=== PATIENT | male | born 1950 | race Caucasian/White ===

== ENCOUNTER → 2017-07-30 20:00 | Outpatient (CLI) | payer MEDICARE, SELFPAY | PROVIDERS: Family Provider Family Medicine; PCP Family Medicine; Visit Provider Family Medicine | DX: G47.33 Obstructive sleep apnea (adult) (pediatric) (principal) | CPT/HCPCS: 95810 ==

== ENCOUNTER → 2017-09-08 20:00 | Outpatient (CLI) | payer MEDICARE, SELFPAY | PROVIDERS: Family Provider Family Medicine; PCP Family Medicine; Visit Provider Family Medicine | DX: G47.33 Obstructive sleep apnea (adult) (pediatric) (principal) | CPT/HCPCS: 95811 ==

== ENCOUNTER → 2018-03-02 13:47 | Outpatient (CLI) | payer MEDICARE, SELFPAY ==
[2018-03-02 17:46] LABS: ALB/GLOB Ratio 0.9 RATIO (0.9-2.4); AST(SGOT) 48 U/L (15-37); Alanine Aminotransfer ALT/SGPT 90 U/L (16-61); Albumin, Serum 3.6 g/dL (3.2-5.0); Alkaline Phosphatase 74 U/L (45-117); Anion Gap 7 (5-15); BUN 17 mg/dL (7-18); BUN/Creat Ratio 14.8 RATIO (10-20); Calcium,Total 8.4 mg/dL (8.5-10.1); Chloride 104 mmol/L (98-107); Cholesterol 171 mg/dL (200); Creatinine, Serum 1.15 mg/dL (0.70-1.30); EST Glomerular Filtration Rate 68 mL/min (>60); Est Glom Filt Rate - Afr Amer 82 mL/min (>60); Globulin 3.8 g/dL (2.2-4.2); Glucose 88 mg/dL (74-106); High Density Lipoprotein 43 mg/dL; Potassium 3.7 mmol/L (3.5-5.1); Protein, Total 7.4 g/dL (6.4-8.2); Sodium Level 139 mmol/L (136-145); Triglycerides 191 mg/dL; Very Low Density Lipoprotein 38 mg/dL (5-40)
== END ==
PROVIDERS: Family Provider Family Medicine; PCP Family Medicine; Visit Provider Family Medicine
DX: I10 Essential (primary) hypertension (principal); E78.5 Hyperlipidemia, unspecified
CPT/HCPCS: 36415; 80053; 80061

== ENCOUNTER → 2019-06-16 14:43 | Outpatient (CLI) | payer MEDICARE, SELFPAY ==
[2019-06-16 17:24] LABS: Absolute Lymphocyte Count 1.77 X10^3/uL (0.83-4.51); Absolute Neutrophil Count 2.7 X10^3/uL (2.0-7.7); Basophil# 0.09 X10^3/uL; Basophil% 1.7 % (0-1); Eosinophil# 0.15 X10^3/uL; Eosinophils% 2.8 % (0-5); Hematocrit 39.9 % (40-54); Hemoglobin 13.3 g/dL (13.0-16.5); Lymphocyte # 1.77 X10^3/ul (4.0); Lymphocyte % 33.3 % (19-41); Mean Corp Hgb Conc 33.3 g/dL (32-36); Mean Corpuscular Hgb 30.3 pg (27.0-32.0); Mean Corpuscular Volume 90.9 fL (80-94); Monocyte% 11.3 % (0-10); NRBC Flagged by Analyzer 0 % (0-5); Neutrophil # 2.69 X10^3/uL (2.7-7.7); Neutrophil % 50.7 % (47-70); Platelet Count 175 K/mm3 (150-450); RBC Distribution Width CV 12.5 % (11.6-14.6); RBC Distribution Width SD 41.5 fl (35.1-43.9); Red Blood Count 4.39 M/mm3 (4.6-6.2); White Blood Count 5.3 K/mm3 (4.4-11.0)
[2019-06-16 17:39] LABS: Cholesterol 184 mg/dL (200); GGTP 26 U/L (15-85); High Density Lipoprotein 40 mg/dL; PSA,Total - Annual Screen 0.79 ng/mL (0.00-4.00); Triglycerides 113 mg/dL; Very Low Density Lipoprotein 23 mg/dL (5-40)
[2019-06-17 10:31] LABS: Hepatitis C Antibody Non-Reactive (Nonreactive)
== END ==
PROVIDERS: PCP Family Medicine; Visit Provider Family Medicine
DX: I10 Essential (primary) hypertension (principal); E78.5 Hyperlipidemia, unspecified; R74.8 Abnormal levels of other serum enzymes; Z12.5 Encounter for screening for malignant neoplasm of prostate; Z51.81 Encounter for therapeutic drug level monitoring
CPT/HCPCS: 36415; 80061; 82977; 84153; 85025; 86803; G0103

== ENCOUNTER → 2020-06-18 10:22 | Outpatient (CLI) | payer MEDICARE, SELFPAY ==
[2020-06-18 12:02] LABS: Absolute Lymphocyte Count 1.55 X10^3/uL (0.83-4.51); Absolute Neutrophil Count 3.9 X10^3/uL (2.0-7.7); Basophil# 0.08 X10^3/uL; Basophil% 1.3 % (0-1); Eosinophil# 0.21 X10^3/uL; Eosinophils% 3.3 % (0-5); Hematocrit 41.6 % (40-54); Hemoglobin 13.6 g/dL (13.0-16.5); Lymphocyte # 1.55 X10^3/ul (4.0); Lymphocyte % 24.3 % (19-41); Mean Corp Hgb Conc 32.7 g/dL (32-36); Mean Corpuscular Hgb 29.6 pg (27.0-32.0); Mean Corpuscular Volume 90.6 fL (80-94); Mean Platelet Vol. 13.1 fl (6.2-12.0); Monocyte# 0.63 X10^3/uL; Monocyte% 9.9 % (0-10); NRBC Flagged by Analyzer 0 % (0-5); Platelet Count 170 K/mm3 (150-450); RBC Distribution Width CV 12.2 % (11.6-14.6); RBC Distribution Width SD 40.1 fl (35.1-43.9); Red Blood Count 4.59 M/mm3 (4.6-6.2); White Blood Count 6.4 K/mm3 (4.4-11.0)
[2020-06-18 12:43] LABS: AST(SGOT) 22 U/L (15-37); Alanine Aminotransfer ALT/SGPT 32 U/L (16-61); Albumin, Serum 3.8 g/dL (3.2-5.0); Alkaline Phosphatase 69 U/L (45-117); Anion Gap 4 (5-15); BUN 21 mg/dL (7-18); BUN/Creat Ratio 18.4 RATIO (10-20); Calcium,Total 8.9 mg/dL (8.5-10.1); Chloride 105 mmol/L (98-107); Cholesterol 220 mg/dL (200); Creatinine, Serum 1.14 mg/dL (0.70-1.30); EST Glomerular Filtration Rate 68 mL/min (>60); Est Glom Filt Rate - Afr Amer 82 mL/min (>60); Globulin 3.8 g/dL (2.2-4.2); Glucose 92 mg/dL (74-106); High Density Lipoprotein 56 mg/dL; PSA,Total - Annual Screen 0.76 ng/mL (0.00-4.00); Potassium 4.1 mmol/L (3.5-5.1); Protein, Total 7.6 g/dL (6.4-8.2); Sodium Level 141 mmol/L (136-145); Triglycerides 88 mg/dL; Very Low Density Lipoprotein 18 mg/dL (5-40)
== END ==
PROVIDERS: PCP Family Medicine; Visit Provider Family Medicine
DX: I10 Essential (primary) hypertension (principal); E78.5 Hyperlipidemia, unspecified; R42 Dizziness and giddiness; R74.8 Abnormal levels of other serum enzymes; Z12.5 Encounter for screening for malignant neoplasm of prostate
CPT/HCPCS: 36415; 80053; 80061; 84153; 85025; G0103

== ENCOUNTER → 2020-10-02 | Outpatient (CLI) | payer MEDICARE, SELFPAY ==
[2020-10-02 08:47] VITALS: BMI 28.8
[2020-10-02 17:29] LABS: Probe Check PASS; Specimen Processing Control PASS
== END | disposition home or self-care (01) ==
LOC: LABSPEC 16:10
PROVIDERS: PCP Family Medicine; Visit Provider Physician Assistant
DX: Z20.822 Contact with and (suspected) exposure to COVID-19 (principal)
CPT/HCPCS: 87635; U0002

== ENCOUNTER → 2022-07-22 | Outpatient (CLI) | payer MEDICARE, SELFPAY ==
[2022-07-22 12:51] LABS: Absolute Lymphocyte Count 1.73 X10^3/uL (0.83-4.51); Absolute Neutrophil Count 3.9 X10^3/uL (2.0-7.7); Basophil# 0.09 X10^3/uL; Basophil% 1.4 % (0-1); Eosinophil# 0.17 X10^3/uL; Eosinophils% 2.6 % (0-5); Hematocrit 44.4 % (40-54); Hemoglobin 14.9 g/dL (13.0-16.5); Lymphocyte # 1.73 X10^3/ul (0.83-4.51); Mean Corp Hgb Conc 33.6 g/dL (32-36); Mean Corpuscular Hgb 30.6 pg (27.0-32.0); Mean Corpuscular Volume 91.2 fL (80-94); Mean Platelet Vol. 12.9 fl (6.2-12.0); Monocyte# 0.75 X10^3/uL; Monocyte% 11.3 % (0-10); NRBC Flagged by Analyzer 0 % (0-5); Neutrophil # 3.91 X10^3/uL (2.7-7.7); Neutrophil % 58.5 % (47-70); Platelet Count 203 K/mm3 (150-450); RBC Distribution Width CV 12.2 % (11.6-14.6); Red Blood Count 4.87 M/mm3 (4.6-6.2); White Blood Count 6.7 K/mm3 (4.4-11.0)
[2022-07-22 13:06] LABS: ALB/GLOB Ratio 0.9 RATIO (0.9-2.4); AST(SGOT) 35 U/L (15-37); Alanine Aminotransfer ALT/SGPT 49 U/L (16-61); Albumin, Serum 3.8 g/dL (3.2-5.0); Alkaline Phosphatase 74 U/L (45-117); Anion Gap 6 (5-15); BUN 17 mg/dL (7-18); BUN/Creat Ratio 13.3 RATIO (10-20); Calcium,Total 9.1 mg/dL (8.5-10.1); Chloride 105 mmol/L (98-107); Cholesterol 212 mg/dL (200); Creatinine, Serum 1.28 mg/dL (0.70-1.30); EST Glomerular Filtration Rate 59 mL/min (>60); Est Glom Filt Rate - Afr Amer 71 mL/min (>60); Globulin 4.3 g/dL (2.2-4.2); Glucose 106 mg/dL (74-106); High Density Lipoprotein 47 mg/dL; Magnesium 1.9 mg/dL (1.6-2.6); PSA,Total - Annual Screen 0.94 ng/mL (0.00-4.00); Protein, Total 8.1 g/dL (6.4-8.2); Sodium Level 140 mmol/L (136-145); Thyroid Stim Hormone (TSH) 3.69 uIU/mL (0.358-3.74); Triglycerides 132 mg/dL; Very Low Density Lipoprotein 26 mg/dL (5-40)
== END | disposition home or self-care (01) ==
LOC: BFHLAB 09:36
PROVIDERS: PCP Family Medicine; Visit Provider Family Medicine
DX: Z00.00 Encounter for general adult medical examination without abnormal findings (principal); I48.91 Unspecified atrial fibrillation; I10 Essential (primary) hypertension; Z12.5 Encounter for screening for malignant neoplasm of prostate
CPT/HCPCS: 36415; 80053; 80061; 83735; 84153; 84443; 85025; G0103

== ENCOUNTER → 2022-08-19 | Outpatient (CLI) | payer MEDICARE, SELFPAY ==
[2022-08-19 17:53] LABS: Absolute Lymphocyte Count 2.22 X10^3/uL (0.83-4.51); Absolute Neutrophil Count 3.4 X10^3/uL (2.0-7.7); Basophil# 0.08 X10^3/uL; Basophil% 1.2 % (0-1); Eosinophil# 0.23 X10^3/uL; Eosinophils% 3.4 % (0-5); Hematocrit 42.7 % (40-54); Hemoglobin 14.5 g/dL (13.0-16.5); Lymphocyte # 2.22 X10^3/ul (0.83-4.51); Lymphocyte % 32.8 % (19-41); Mean Corpuscular Hgb 30.6 pg (27.0-32.0); Mean Corpuscular Volume 90.1 fL (80-94); Mean Platelet Vol. 12.6 fl (6.2-12.0); Monocyte# 0.81 X10^3/uL; NRBC Flagged by Analyzer 0 % (0-5); Neutrophil # 3.41 X10^3/uL (2.7-7.7); Neutrophil % 50.3 % (47-70); Platelet Count 213 K/mm3 (150-450); RBC Distribution Width CV 12.7 % (11.6-14.6); RBC Distribution Width SD 41.4 fl (35.1-43.9); Red Blood Count 4.74 M/mm3 (4.6-6.2); White Blood Count 6.8 K/mm3 (4.4-11.0)
[2022-08-19 18:20] LABS: BNP,B-Type NATRIURETIC PEPTIDE 400.1 pg/mL (0-100)
[2022-08-19 18:43] LABS: Anion Gap 7 (5-15); BUN 14 mg/dL (7-18); BUN/Creat Ratio 11.6 RATIO (10-20); Calcium,Total 9.2 mg/dL (8.5-10.1); Chloride 106 mmol/L (98-107); Creatinine, Serum 1.21 mg/dL (0.70-1.30); EST Glomerular Filtration Rate 63 mL/min (>60); Est Glom Filt Rate - Afr Amer 76 mL/min (>60); Glucose 103 mg/dL (74-106); Potassium 3.6 mmol/L (3.5-5.1); Sodium Level 139 mmol/L (136-145)
== END | disposition home or self-care (01) ==
LOC: BFHLAB 14:26
PROVIDERS: PCP Family Medicine; Referring Provider Family Medicine; Visit Provider Family Medicine
DX: I48.91 Unspecified atrial fibrillation (principal); I10 Essential (primary) hypertension; Z51.81 Encounter for therapeutic drug level monitoring
CPT/HCPCS: 36415; 80048; 83880; 85025

== ENCOUNTER → 2022-09-10 | Outpatient (CLI) | payer MEDICARE, SELFPAY ==
--- NOTE | 2022-09-10 06:43 | ECHOD_ITS ---
Reason For Study: New Onset Afib Procedure This was a 2D Doppler, Color Flow transthoracic echocardiogram. Exam performed in department. Left Ventricle Normal LV size. Left ventricular systolic function is normal. The estimated ejection fraction is 60 %. Normal diastology for age. No regional wall motion abnormalities noted. Right Ventricle Normal RV size. Normal systolic function. Tricuspid Valve Normal tricuspid valve. Mild tricuspid valve insufficiency. Pulmonary artery systolic pressure is 30 mmHg. Aortic Valve Trisinus/trileaflet aortic valve. Pulmonic Valve Normal pulmonic valve. Great Vessels Normal aortic root. The pulmonary artery is normal size. Normal inferior vena cava. Pericardium/Pleural No pericardial effusion. MMode/2D Measurements & Calculations LVIDd: 4.4 cm IVSd: 1.3 cm Ao root diam: 3.1 cm LVIDs: 3.2 cm LVPWd: 0.95 cm RVDd: 3.6 cm FS: 26.7 % LAV(MOD-bp): 48.0 ml SV(MOD-sp4): 54.2 ml LVAd ap4: 29.3 cm2 LAV(MOD-bp) Indexed: 22.8 ml/m2 LVLd ap4: 7.9 cm LAV(MOD-sp2): 36.4 ml EDV(MOD-sp4): 86.8 ml LAV(MOD-sp4): 56.4 ml EDV(sp4-el): 92.6 ml LVAs ap4: 16.4 cm2 LVLs ap4: 6.6 cm ESV(MOD-sp4): 32.6 ml ESV(sp4-el): 34.4 ml EF(MOD-sp4): 62.4 % EF(sp4-el): 62.9 % SV(sp4-el): 58.2 ml LA dimension(2D): 4.3 cm LA A4 area: 20.3 cm2 RA A4 area: 16.0 cm2 Time Measurements MV dec time: 0.23 sec Doppler Measurements & Calculations MV E max miguel: 90.1 cm/sec Lat Peak E' Miguel: 9.5 cm/sec Med Peak E' Miguel: 8.1 cm/sec MV A max miguel: 74.7 cm/sec E/E' lat: 9.4 E/E' med: 11.1 MV E/A: 1.2 Ao V2 max: 115.2 cm/sec LV V1 max: 95.4 cm/sec MV dec slope: 395.7 cm/sec2 Ao max P.3 mmHg LV V1 max P.6 mmHg Ao V2 mean: 81.5 cm/sec Ao mean P.0 mmHg Ao V2 VTI: 29.5 cm PA V2 max: 87.2 cm/sec TR max miguel: 258.1 cm/sec TR max P.6 mmHg ECHO/Echo Complete Interpretation Summary Normal LV size. Left ventricular systolic function is normal. The estimated ejection fraction is 60 %. Structurally normal valves. Ordering Physician: Maycol Lundy Referring Physician: Panda Eaton Performed By: Shira Winter, RDCS, RVT
--- NOTE | 2022-09-10 18:23 | STRESSREP ---
Stress Test Report Exercise myocardial perfusion stress test. 72-year-old man with a history of atrial fibrillation Stress protocol: Resting EKG demonstrates sinus bradycardia with a rate of 57 bpm resting blood pressure is 142/84 mmHg. The patient exercised according to the regular Dhaval protocol for a total duration of 8 minutes attaining a maximum heart rate of 129 bpm which was 86% of maximum predicted heart rate; the maximum workload was 10.1 metabolic equivalents. At rest there were no ST or T wave changes noted to suggest ischemia and at peak exercise upsloping ST changes only were noted which did not meet the criteria for ischemia. No clinical angina was noted the test was terminated due to the target heart rate being achieved/fatigue. The peak blood pressure was 192/80 mmHg. Rate-pressure product was 24,700. Myocardial perfusion protocol. 14.7 mCi of technetium 99m sestamibi was injected at rest. The patient exercised according to regular Dhaval protocol for total duration of 8 minutes and at peak exercise 44.8 mCi of technetium 99m sestamibi was injected stress images were obtained stress and rest images were reconstructed in comparing the short axis vertical long and horizontal long axis. Gated images were also obtained. Perfusion SPECT analysis: Review of the stress images demonstrate normal uptake of tracer noted in all areas of the myocardium. The resting images similarly demonstrate normal uptake of tracer noted in all areas of the myocardium. No areas of reversibility are noted to suggest ischemia no previous infarct was noted. Gated SPECT analysis: The gated ejection fraction is 60%. Conclusion: Normal exercise myocardial perfusion stress test at a high workload Preserved ejection fraction.
== END | disposition home or self-care (01) ==
LOC: CVS 06:42
PROVIDERS: PCP Family Medicine; Referring Provider Internal Medicine Cardiovascular Disease; Visit Provider Internal Medicine Cardiovascular Disease
DX: R94.31 Abnormal electrocardiogram [ECG] [EKG] (principal)
CPT/HCPCS: 78452; 93017; 93306; A9500; A4216

== ENCOUNTER → 2023-08-19 | Outpatient (CLI) | payer MEDICARE, SELFPAY ==
[2023-08-19 14:37] LABS: Absolute Lymphocyte Count 2.29 X10^3/uL (0.83-4.51); Absolute Neutrophil Count 4.2 X10^3/uL (2.0-7.7); Basophil# 0.12 X10^3/uL; Basophil% 1.6 % (0-1); Eosinophil# 0.17 X10^3/uL; Eosinophils% 2.2 % (0-5); Hematocrit 43.1 % (40-54); Hemoglobin 14.4 g/dL (13.0-16.5); Lymphocyte # 2.29 X10^3/ul (0.83-4.51); Lymphocyte % 30.1 % (19-41); Mean Corp Hgb Conc 33.4 g/dL (32-36); Mean Corpuscular Hgb 30.2 pg (27.0-32.0); Mean Corpuscular Volume 90.4 fL (80-94); Mean Platelet Vol. 12.2 fl (6.2-12.0); Monocyte# 0.79 X10^3/uL; Monocyte% 10.4 % (0-10); NRBC Flagged by Analyzer 0 % (0-5); Neutrophil # 4.21 X10^3/uL (2.7-7.7); Neutrophil % 55.4 % (47-70); Platelet Count 217 K/mm3 (150-450); RBC Distribution Width CV 12.7 % (11.6-14.6); RBC Distribution Width SD 41.7 fl (35.1-43.9); Red Blood Count 4.77 M/mm3 (4.6-6.2); White Blood Count 7.6 K/mm3 (4.4-11.0)
[2023-08-19 14:58] LABS: BNP,B-Type NATRIURETIC PEPTIDE 178.8 pg/mL (0-100)
[2023-08-19 15:07] LABS: AST(SGOT) 37 U/L (15-37); Alanine Aminotransfer ALT/SGPT 59 U/L (16-61); Albumin, Serum 3.9 g/dL (3.2-5.0); Alkaline Phosphatase 73 U/L (45-117); Anion Gap 6 (5-15); BUN 21 mg/dL (7-18); BUN/Creat Ratio 13.5 RATIO (10-20); Calcium,Total 8.5 mg/dL (8.5-10.1); Chloride 106 mmol/L (98-107); Creatinine, Serum 1.56 mg/dL (0.70-1.30); EST Glomerular Filtration Rate 47 mL/min (>60); Est Glom Filt Rate - Afr Amer 57 mL/min (>60); Globulin 3.9 g/dL (2.2-4.2); Glucose 101 mg/dL (74-106); Magnesium 2.2 mg/dL (1.6-2.6); PSA,Total - Annual Screen 1.39 ng/mL (0.00-4.00); Potassium 3.4 mmol/L (3.5-5.1); Protein, Total 7.8 g/dL (6.4-8.2); Sodium Level 140 mmol/L (136-145); Thyroid Stim Hormone (TSH) 8.43 uIU/mL (0.358-3.74)
== END | disposition home or self-care (01) ==
PROVIDERS: PCP Family Medicine; Referring Provider Nurse Practitioner Family; Visit Provider Nurse Practitioner Family
DX: I10 Essential (primary) hypertension (principal); I48.91 Unspecified atrial fibrillation; E78.2 Mixed hyperlipidemia; R06.09 Other forms of dyspnea; Z12.5 Encounter for screening for malignant neoplasm of prostate
CPT/HCPCS: 36415; 80053; 83735; 83880; 84153; 84443; 85025; G0103

== ENCOUNTER → 2023-09-17 | Outpatient (CLI) | payer MEDICARE, SELFPAY ==
[2023-09-17 12:36] LABS: Anion Gap 3 (5-15); BUN 18 mg/dL (7-18); BUN/Creat Ratio 12.2 RATIO (10-20); Calcium,Total 8.9 mg/dL (8.5-10.1); Chloride 107 mmol/L (98-107); Cholesterol 221 mg/dL (200); Creatinine, Serum 1.47 mg/dL (0.70-1.30); EST Glomerular Filtration Rate 50 mL/min (>60); Est Glom Filt Rate - Afr Amer 61 mL/min (>60); Glucose 102 mg/dL (74-106); High Density Lipoprotein 48 mg/dL; Potassium 4.3 mmol/L (3.5-5.1); Sodium Level 139 mmol/L (136-145); Triglycerides 96 mg/dL; Very Low Density Lipoprotein 19 mg/dL (5-40)
== END | disposition home or self-care (01) ==
LOC: LAB.FUTURE 10:01
PROVIDERS: PCP Family Medicine; Referring Provider Family Medicine; Visit Provider Family Medicine
DX: I48.91 Unspecified atrial fibrillation (principal); I10 Essential (primary) hypertension; E78.5 Hyperlipidemia, unspecified; Z12.5 Encounter for screening for malignant neoplasm of prostate
CPT/HCPCS: 36415; 80048; 80061

== ENCOUNTER → 2023-12-29 | Outpatient (CLI) | payer MEDICARE, SELFPAY ==
--- NOTE | 2023-12-29 12:03 | STRESSREP ---
Stress Test Report Exercise myocardial perfusion stress test. 73-year-old man with a history of atrial fibrillation Stress protocol: Resting EKG demonstrates atrial fibrillation with a rate of 89 bpm resting blood pressure is 150/90 mmHg. The patient exercised according to the regular Dhaval protocol for a total duration of 6-1/2 minutes attaining a maximum heart rate of 162 bpm which was 108% of maximum predicted heart rate; the maximum workload was 8.5 metabolic equivalents. At rest there were no ST or T wave changes noted to suggest ischemia and at peak exercise upsloping ST changes only were noted which did not meet the criteria for ischemia. No clinical angina was noted the test was terminated due to the target heart rate being achieved/fatigue. The peak blood pressure was 164/82 mmHg. Rate-pressure product was 26,500. Myocardial perfusion protocol. 14.1 mCi of technetium 99m sestamibi was injected at rest. The patient exercised according to regular Dhaval protocol for total duration of 6-1/2-minute and at peak exercise 42.3 mCi of technetium 99m sestamibi was injected stress images were obtained stress and rest images were reconstructed in comparing the short axis vertical long and horizontal long axis. Gated images were also obtained. Perfusion SPECT analysis: Review of the stress images demonstrate normal uptake of tracer noted in all areas of the myocardium. The resting images similarly demonstrate normal uptake of tracer noted in all areas of the myocardium. No areas of reversibility are noted to suggest ischemia no previous infarct was noted. Gated SPECT analysis: The gated ejection fraction is 54%. Conclusion: Normal exercise myocardial perfusion stress test at a moderate workload Preserved ejection fraction.
== END | disposition home or self-care (01) ==
PROVIDERS: PCP Family Medicine; Referring Provider Nurse Practitioner Family; Visit Provider Nurse Practitioner Family
DX: R06.09 Other forms of dyspnea (principal); I48.0 Paroxysmal atrial fibrillation; I10 Essential (primary) hypertension; E78.2 Mixed hyperlipidemia
CPT/HCPCS: 78452; 93017; A9500; A4216

== ENCOUNTER 2024-06-22 19:33 | Inpatient (IN) | payer MEDICARE, SELFPAY ==
[2024-06-22] VITALS (11 sets, daily range): BP systolic 120–137; BP diastolic 67–88; PULSE 87–116; RESP 16–35; TEMP 36.7–37.7; O2SAT 90–98; BMI 30.4; BMI 30.7
--- NOTE | 2024-06-22 19:43 | EKG12_ITS ---
Test Reason : STROKE ALERT Blood Pressure : */* mmHG Vent. Rate : 106 BPM Atrial Rate : * BPM P-R Int : * ms QRS Dur : 80 ms QT Int : 290 ms P-R-T Axes : * -13 32 degrees QTcB Int : 385 ms Atrial fibrillation with rapid ventricular response Nonspecific ST abnormality Abnormal ECG Confirmed by WILFREDO MALONEY, JOVANNA ([id number]), script editor ZENAIDA OSEGUERA ([id number]) on 06/25/2024 7:22:37 AM Referred By: Confirmed By: JOVANNA VILLALOBOS MD
--- NOTE | 2024-06-22 19:43 | CT_ITS ---
PROCEDURE: STROKE BRAIN/HEAD WITHOUT CONT REASON FOR EXAM: Suspected stroke. TECHNIQUE: CT of the head without contrast was performed. COMPARISON: None. FINDINGS: The ventricles are normal in size and midline in position. Left parietal hypodensity spanning the lee-white matter junction. No evidence of acute hemorrhage. No extra-axial blood or fluid collections. The paranasal sinuses are clear. The mastoid air cells are well aerated. CT/STROKE Brain/Head without Cont IMPRESSION: Left parietal hypodensity favoring infarction of undetermined age. MRI is jalen mmended to exclude an acute infarction. Critical results were communicated to Dr. Bryce Jaime at 7:56 p.m. One or more dose reduction techniques were used (e.g., Automated exposure contr ol, adjustment of the mA and/or kV according to patient size, use of iterative reconstruction technique). Reading Location: [id number]
--- NOTE | 2024-06-22 19:44 | CT_ITS ---
PROCEDURE: STROKE CTA HEAD AND NECK W/CON REASON FOR EXAM: Stroke. TECHNIQUE: CTA imaging of the head and neck from the aortic arch to the skull vertex with intravenous contrast. 3D reconstructions. COMPARISON: None. FINDINGS: Aortic Arch: Normal size and branching pattern. No significant atherosclerotic plaque. Brachiocephalic and Subclavians: Unremarkable RIGHT Carotid: Right CCA: Unremarkable. Right ICA: Occluded right internal carotid artery. Right ECA: Unremarkable. LEFT Carotid: Left CCA: Unremarkable. Left ICA: Atherosclerosis without significant stenosis. Left ECA: Unremarkable. Vertebrals: Codominant. Arise from the subclavians. Both vertebrals form the basilar. RIGHT Vertebral: Thready opacification. LEFT Vertebral: Unremarkable. No intracranial aneurysms or large vascular malformations are identified. Anterior cerebral arteries: Unremarkable. Middle cerebral arteries: Unremarkable. Basilar artery: Unremarkable. Posterior cerebral arteries: Unremarkable. Other major branches of the posterior circulation: Unremarkable. Major venous structures: Unremarkable. Other findings: No lymphadenopathy. Lung apices are clear. Bones are unremarkable. CT/STROKE CTA Head AND Neck W/Con IMPRESSION: Occluded right internal carotid artery. Thready opacification of a diminutive right cervical vertebral artery. Critical results communicated to Dr. Agrawal 8:15 p.m. One or more dose reduction techniques were used (e.g., Automated exposure contr ol, adjustment of the mA and/or kV according to patient size, use of iterative reconstruction technique). Reading Location: [id number]
--- NOTE | 2024-06-22 19:45 | EX.ED.DYSGE1 ---
HPI History of Present Illness Chief Complaint: Stroke Alert Narrative Narrative: Chief complaint and HPI: Expressive aphasia. 74-year-old male with past medical history of HTN, HLD, atrial fibrillation on Xarelto presents for evaluation of expressive aphasia. Per , patient has had flulike symptoms for the past 2 days consisting of cough, fever, decreased appetite, sore throat. She states that his last known normal was at approximately 10:30 AM when she left for work. She states she returned home from work at approximately 6 PM in which she found the patient with expressive aphasia. On presentation to the emergency department, patient was made a stroke alert as he is still within the LVO window but outside the CVA window given last known normal. Given patient's expressive aphasia history is limited by patient as he cannot tell me when his symptoms started. NIH 2 secondary to expressive aphasia. Patient taken immediately to the CT scanner. Review of systems: See HPI Medications: As listed on the chart Allergies: As listed on the chart PFSH: Per chart Vital signs: As listed on the chart. Reviewed. Physical exam: Gen: A&O x3, NAD Head: Normocephalic, atraumatic Eyes: No sclera icterus, conjunctiva clear, PERRL, EOMI ENT: Moist mucous membranes, No facial asymmetry Neck: Trachea midline, No JVD CV: RRR, no murmurs, no peripheral edema Resp: Lungs CTA BL, no w/r/c GI: Abd soft, non-distended, non-tender, no r/r/g Musc: Full ROM, no deformity, strength +5/5 in all extremities, no pronator drift, no ataxia, DTR +2/5 Skin: Warm, dry, intact Neuro: Alert, oriented, grossly intact, sensation intact, no dysarthria, expressive aphasia, NIH 2 Psych: Cooperative, appropriate mood and affect [facility] Medical History MERY on CPAP Essential hypertension Hyperlipidemia BPH (benign prostatic hyperplasia) PLMD (periodic limb movement disorder) Home Medications ?Medication ?Instructions ?Recorded ?Last Taken ?Type losartan 50 mg tablet 50 mg PO DAILY #90 tabs 08/19/23 06/21/24 Rx rivaroxaban 20 mg tablet (Xarelto) 20 mg PO QPM #30 tabs 09/22/23 06/22/24 10:00 Rx metoprolol succinate 50 mg 50 mg PO QDAY #90 tabs 05/03/24 06/22/24 10:00 Rx tablet,extended release 24 hr (Toprol XL) Allergy/AdvReac Type Severity Reaction Status Date / Time Penicillins Allergy Unknown Rash Verified 05/03/24 09:58 lisinopril AdvReac Unknown cough Verified 05/03/24 09:58 Family History Mother Diabetes CVA (cerebral vascular accident) Surgical History History of appendectomy (~1969) History of eye surgery (~1989) Social History Smoking Status: Never smoker alcohol intake: never substance use type: does not use caffeine: Yes Type: coffee Number of servings: 1 EXAM Physical Exam Const Vital Signs: 06/22/24 19:34 06/22/24 19:54 06/22/24 19:56 Temperature 98.0 F Temperature Source Oral Pulse Rate 87 87 115 H Respiratory Rate 18 18 16 Blood Pressure 132/80 H 132/80 H 125/76 H Blood Pressure Mean 97 97 92 Pulse Ox 98 98 98 Oxygen Delivery Method Room Air Room Air Room Air Oxygen Flow Rate (L/min) 98 06/22/24 20:15 06/22/24 20:19 06/22/24 20:30 Temperature Temperature Source Pulse Rate 108 H 101 H Respiratory Rate 23 H 22 H Blood Pressure 120/88 H 121/77 H Blood Pressure Mean 98 91 Pulse Ox 94 98 92 Oxygen Delivery Method Room Air Room Air Room Air Oxygen Flow Rate (L/min) 06/22/24 21:00 06/22/24 21:31 Temperature 99.6 F H Temperature Source Oral Pulse Rate 101 H 106 H Respiratory Rate 35 H 30 H Blood Pressure 134/73 H 137/72 H Blood Pressure Mean 89 93 Pulse Ox 94 94 Oxygen Delivery Method Room Air Oxygen Flow Rate (L/min) MDM MDM MDM Narrative Medical decision making narrative: 74-year-old male with past medical history of HTN, HLD, atrial fibrillation on Xarelto presents for evaluation of expressive aphasia. Patient last known normal was 10:30 AM. Patient was made a stroke alert and taken immediately to CT scanner as he is inside LVO window. Not a tPA candidate given due to being on Xarelto as well as outside stroke window. Stroke workup ordered. [facility] teleneurology was consulted. Differential diagnosis includes CVA, LVO, electrolyte abnormality, viral illness. EKG and chest x-ray reviewed see below. CT head shows a left parietal hypodensity favoring infarction of undetermined age. This was communicated to me by radiology over the telephone. Teleneurology agrees with findings. CTA head and neck shows occluded right internal carotid artery. Thready opacification of right cervical vertebral artery. I was updated results by radiology over the phone. CBC without leukocytosis. Patient has anemia with hemoglobin of 12.7. Thrombocytopenia of 118. INR 1.8. BMP with mild hyponatremia at 132. Baseline CKD. Troponin unremarkable. UA negative for UTI. Patient positive for influenza A. Given his symptoms have been ongoing for 2 days patient is within Tamiflu window and therefore Tamiflu ordered. Findings are concerning for CVA. Patient will need admission for MRI brain and further workup. Teleneurology agrees with aspirin. Hold off on Plavix. Agrees with MRI brain. Patient and family updated of all the results and the plan. They confirmed understanding. Hospice service Dr. Villafana accepted admission. EKG: Interpreted by me/EM physician: EKG shows atrial fibrillation with a heart rate of 106. Nonspecific ST changes Diagnostic: Interpreted by me/EM physician: Chest x-ray without pneumonia, pneumothorax. Cardiomegaly. 35 minutes of critical care time utilized in managing the patient. This is due to high probability of and deterioration of the patient based on the patient's condition and excludes any separately billable procedures. Impression: 1. Left parietal hypodensity favoring infarction of undetermined age 2. Expressive aphasia 3. Influenza A 4. Anemia 5. Thrombocytopenia. 6. CKD 7. Mild hyponatremia. Lab Data Labs: Laboratory Results - last 24 hr 06/22/24 06/22/24 06/22/24 19:38 19:44 19:44 WBC Cancelled Corrected WBC Cancelled RBC Cancelled Hgb Cancelled Hct Cancelled MCV Cancelled MCH Cancelled MCHC Cancelled RDW Std Deviation Cancelled RDW Coeff of Mike Cancelled Plt Count Cancelled MPV Cancelled Immature Gran % (Auto) Cancelled Neut % (Auto) Cancelled Lymph % (Auto) Cancelled [place] % (Auto) Cancelled Eos % (Auto) Cancelled Baso % (Auto) Cancelled Absolute Neuts (auto) Cancelled Absolute Lymphs (auto) Cancelled Total Counted Cancelled Neutrophils % (Manual) Cancelled Band Neutrophils % Cancelled Lymphocytes % (Manual) Cancelled Monocytes % (Manual) Cancelled Eosinophils % (Manual) Cancelled Basophils % (Manual) Cancelled Metamyelocytes % Cancelled Myelocytes % Cancelled Promyelocytes % Cancelled Blast Cells % Cancelled Plasma Cell % (Manual) Cancelled Other Cells % Cancelled Nucleated RBC % Cancelled Nucleated RBCs/100 WBC Cancelled Differential Comment Cancelled Diff Path Review Cancelled Hypersegmented Neuts Cancelled Atypical Lymphocytes Cancelled Reactive Lymphocytes Cancelled Smudge Cells Cancelled Toxic Granulation Cancelled Toxic Vacuolation Cancelled Dohle Bodies Cancelled Cindy Rods Cancelled Platelet Estimate Cancelled Plt Morphology Comment Cancelled RBC Morphology Cancelled Cancelled Polychromasia Cancelled Hypochromasia Cancelled Basophilic Stippling Cancelled Anisocytosis Cancelled Microcytosis Cancelled Macrocytosis Cancelled Spherocytes Cancelled Sickle Cells Cancelled Target Cells Cancelled Tear Drop Cells Cancelled Ovalocytes Cancelled Stomatocytes Cancelled [place] Bodies Cancelled Toan Cells Cancelled Bite Cells Cancelled Crenated Cell Cancelled Acanthocytes (Spur) Cancelled Rouleaux Cancelled Schistocytes Cancelled PT INR APTT Sodium 132 L Potassium 4.4 Chloride 101 Carbon Dioxide 23.0 Anion Gap 9 BUN 22 H Creatinine 1.48 H Estim Creat Clear Calc 50.94 Est GFR (MDRD) Af Amer 60 Est GFR (MDRD) Non-Af 50 L BUN/Creatinine Ratio 14.9 Glucose 108 H Calcium 8.4 L Magnesium 1.8 Troponin I High Sens 13 Urine Color Urine Clarity Urine pH Ur Specific [place] Urine Protein Urine Glucose (UA) Urine Ketones Urine Occult Blood Urine Nitrite Urine Bilirubin Urine Urobilinogen Ur Leukocyte Esterase Urine RBC Urine WBC Ur Squamous Epith Cells Urine Bacteria Urine Mucus POC Glucose 110 H 06/22/24 06/22/24 06/22/24 20:00 20:04 20:45 WBC 6.1 Corrected WBC RBC 4.23 L Hgb 12.7 L Hct 38.0 L MCV 89.8 MCH 30.0 MCHC 33.4 RDW Std Deviation 41.1 RDW Coeff of Mike 12.5 Plt Count 118 L MPV 12.1 H Immature Gran % (Auto) 0.300 Neut % (Auto) 81.9 H Lymph % (Auto) 6.4 L [place] % (Auto) 10.9 H Eos % (Auto) 0.2 Baso % (Auto) 0.3 Absolute Neuts (auto) 5.0 Absolute Lymphs (auto) 0.39 L Total Counted Neutrophils % (Manual) Band Neutrophils % Lymphocytes % (Manual) Monocytes % (Manual) Eosinophils % (Manual) Basophils % (Manual) Metamyelocytes % Myelocytes % Promyelocytes % Blast Cells % Plasma Cell % (Manual) Other Cells % Nucleated RBC % 0 Nucleated RBCs/100 WBC Differential Comment Diff Path Review Hypersegmented Neuts Atypical Lymphocytes Reactive Lymphocytes Smudge Cells Toxic Granulation Toxic Vacuolation Dohle Bodies Cindy Rods Platelet Estimate Plt Morphology Comment RBC Morphology Polychromasia Hypochromasia Basophilic Stippling Anisocytosis Microcytosis Macrocytosis Spherocytes Sickle Cells Target Cells Tear Drop Cells Ovalocytes Stomatocytes [place] Bodies Pray Cells Bite Cells Crenated Cell Acanthocytes (Spur) Rouleaux Schistocytes PT 21.7 H INR 1.8 APTT 26.7 Sodium Potassium Chloride Carbon Dioxide Anion Gap BUN Creatinine Estim Creat Clear Calc Est GFR (MDRD) Af Amer Est GFR (MDRD) Non-Af BUN/Creatinine Ratio Glucose Calcium Magnesium Troponin I High Sens Urine Color Yellow Urine Clarity Clear Urine pH 6.5 Ur Specific [place] 1.010 Urine Protein 30 H Urine Glucose (UA) Normal Urine Ketones Negative Urine Occult Blood 25 H Urine Nitrite Negative Urine Bilirubin Negative Urine Urobilinogen Normal Ur Leukocyte Esterase Negative Urine RBC 0-5 SEEN Urine WBC 0 SEEN Ur Squamous Epith Cells 0 SEEN Urine Bacteria 0 SEEN Urine Mucus 0 SEEN POC Glucose Radiography Diagnostic Testing: Clinical Impression(s) from Imaging Studies Brain CT 06/22/24 19:43 IMPRESSION: Left parietal hypodensity favoring infarction of undetermined age. MRI is recommended to exclude an acute infarction. Critical results were communicated to Dr. Bryce Jaime at 7:56 p.m. One or more dose reduction techniques were used (e.g., Automated exposure control, adjustment of the mA and/or kV according to patient size, use of iterative reconstruction technique). Reading Location: [facility] Head/Neck CTA 06/22/24 19:44 IMPRESSION: Occluded right internal carotid artery. Thready opacification of a diminutive right cervical vertebral artery. Critical results communicated to Dr. Agrawal 8:15 p.m. One or more dose reduction techniques were used (e.g., Automated exposure control, adjustment of the mA and/or kV according to patient size, use of iterative reconstruction technique). Reading Location: [facility] Chest X-Ray 06/22/24 21:05 IMPRESSION: Pulmonary vascular congestion. Cardiomegaly. Reading Location: [facility] Discharge Plan Disposition Disposition: Acute Care Hospital [facility] Discharge Date/Time: 06/22/24 22:47
[2024-06-22 19:56] LABS: Bedside Glucose 110 mg/dL (74-106)
[2024-06-22 20:10] LABS: Absolute Lymphocyte Count 0.39 X10^3/uL (0.83-4.51); Basophil# 0.02 X10^3/uL; Basophil% 0.3 % (0-1); Eosinophil# 0.01 X10^3/uL; Eosinophils% 0.2 % (0-5); Hemoglobin 12.7 g/dL (13.0-16.5); Lymphocyte # 0.39 X10^3/ul (0.83-4.51); Lymphocyte % 6.4 % (19-41); Mean Corp Hgb Conc 33.4 g/dL (32-36); Mean Corpuscular Volume 89.8 fL (80-94); Mean Platelet Vol. 12.1 fl (6.2-12.0); Monocyte# 0.67 X10^3/uL; Monocyte% 10.9 % (0-10); NRBC Flagged by Analyzer 0 % (0-5); Neutrophil # 5.01 X10^3/uL (2.7-7.7); Neutrophil % 81.9 % (47-70); POSITIVE DIFFERENTIAL YES; Platelet Count 118 K/mm3 (150-450); RBC Distribution Width CV 12.5 % (11.6-14.6); RBC Distribution Width SD 41.1 fl (35.1-43.9); Red Blood Count 4.23 M/mm3 (4.6-6.2); White Blood Count 6.1 K/mm3 (4.4-11.0)
[2024-06-22 20:22] LABS: International Normalized Ratio 1.8; Prothrombin Time (Protime)PT. 21.7 SECONDS (11.7-14.9)
[2024-06-22 20:23] LABS: Partial Thromboplast Time 26.7 Seconds (24.1-36.2)
[2024-06-22 20:47] LABS: Anion Gap 9 (5-15); BUN 22 mg/dL (7-18); BUN/Creat Ratio 14.9 RATIO (10-20); Calcium,Total 8.4 mg/dL (8.5-10.1); Chloride 101 mmol/L (98-107); Creatinine, Serum 1.48 mg/dL (0.70-1.30); EST Glomerular Filtration Rate 50 mL/min (>60); Est Glom Filt Rate - Afr Amer 60 mL/min (>60); Estimated Creatinine Clearance 50.94 ml/min; Glucose 108 mg/dL (74-106); Potassium 4.4 mmol/L (3.5-5.1); Sodium Level 132 mmol/L (136-145); Troponin-I HS 13 pg/mL (3.0-78.0)
[2024-06-22 21:00] LABS: Bacteria 0 SEEN /hpf (None Seen); Mucous, Urine 0 SEEN /hpf (<or=2+); Squamous Epithelial Cells - UA 0 SEEN /hpf (0-5); White Blood Cells 0 SEEN /hpf (0-5)
[2024-06-22 21:01] LABS: Glucose, Dipstick Normal (Normal); Ketone-Dipstick Negative (Negative); Leukocyte Esterase-Dipstick Negative /ul (Negative); Nitrite-Dipstick Negative (Negative); Occult Blood-Urine 25 /ul (Negative); Protein-Dipstick 30 mg/dl (Negative); Urine Bilirubin Dipstick Negative (Negative); Urine Urobilinogen Normal (Normal); Urine pH 6.5 (5.0 - 8.0)
--- NOTE | 2024-06-22 21:05 | RAD_ITS ---
PROCEDURE: CHEST PA AND LATERAL REASON FOR EXAM: Stroke symptoms. TECHNIQUE: Frontal and lateral views of the chest. COMPARISON: None. FINDINGS: The heart is enlarged. The mediastinal contour is unremarkable. Cephalization of the pulmonary vessels suggestive of vascular congestion. The bones are unremarkable. RAD/Chest PA and Lateral IMPRESSION: Pulmonary vascular congestion. Cardiomegaly. Reading Location: [id number]
[2024-06-22 21:08] LABS: Color, Urine Yellow (Yellow); Urine Clarity Clear (Clear)
[2024-06-22] MEDS: Aspirin 81 MG TAB.CHEW 324 MG PO (21:14)
[2024-06-22] MEDS: 0.9% Normal Saline (1000mL) 1,000 ML 999 ML IV (21:14)
[2024-06-22 21:19] LABS: Red Blood Cells-Urine 0-5 SEEN /hpf (0-5)
--- NOTE | 2024-06-22 21:56 | PCM.HP.STD ---
HPI - General General Date of Admission: 06/22/24 Date of Service: 06/22/24 Chief Complaint: Expressive aphasia, recent flu like symptoms. HPI Narrative The patient is a 74-year-old male with past medical history obesity, CKD stage III unclear subtype per GFR trending, hypertension, hyperlipidemia, BPH with obstructive pathology, limb movement disorder, MERY on CPAP, PAF on Xarelto who presents to the [facility] ED on 06/22/2024 with history of last known well at 10:30 in the morning per his who is seen him at that point aside from his persistent URI type symptoms which has been ongoing for the last 2 days including fever, chills, cough, shortness of breath, body aches, decreased appetite with worsening fatigue and malaise however she returned home at approximately 6 PM and noted immediately that he had expressive aphasia prompting transition to the ED for evaluation. Workup in the ED included T98, heart rate 87, BP 132/80, respiratory rate 18, 98% on room air with most recent repeat vitals T99.6 Orally, heart rate 106, BP 137/72, respiratory rate 30, 94% on room air, CBC with WC 6.1, hemoglobin 12.7, MCV 89.8, platelet 118 with lymphopenia, coags unremarkable aside PT 21.7, BMP with sodium 132, BUN/creatinine 22/1.48, GFR 50, glucose 108, calcium 8.4, troponin 13, urinalysis unremarkable, CT of the brain with left parietal hypodensity favoring infarction of undetermined age, CTA head and neck with occluded right internal carotid artery, 3D opacification of diminutive right cervical vertebral artery, chest x-ray with pulmonary vascular congestion/cardiomegaly, EKG with atrial fibrillation with RVR initially, rapid SARS COVID/influenza/RSV PCR with positive influenza A. In the ED patient ministered 1 L normal saline as well as aspirin 324 mg p.o. x 1 in addition to Tamiflu 75 mg x 1. [facility] Medical History Obesity CKD (chronic kidney disease), stage III MERY on CPAP Essential hypertension Hyperlipidemia BPH (benign prostatic hyperplasia) PLMD (periodic limb movement disorder) Home Medications ?Medication ?Instructions ?Recorded ?Last Taken ?Type losartan 50 mg tablet 50 mg PO DAILY #90 tabs 08/19/23 06/21/24 Rx rivaroxaban 20 mg tablet (Xarelto) 20 mg PO QPM #30 tabs 09/22/23 06/22/24 10:00 Rx metoprolol succinate 50 mg 50 mg PO QDAY #90 tabs 05/03/24 06/22/24 10:00 Rx tablet,extended release 24 hr (Toprol XL) Allergy/AdvReac Type Severity Reaction Status Date / Time Penicillins Allergy Unknown Rash Verified 05/03/24 09:58 lisinopril AdvReac Unknown cough Verified 05/03/24 09:58 Family History (Updated 06/23/24 @ 01:[address] Cecy Villafana MD) Mother Diabetes CVA (cerebral vascular accident) Father Dementia Surgical History History of appendectomy (~1969) History of eye surgery (~1989) Social History (Updated 06/23/24 @ 01:[address] Cecy Villafana MD) household members: spouse Smoking Status: Never smoker alcohol intake: never substance use type: does not use caffeine: Yes Type: coffee Number of servings: 1 ROS ROS Narrative Admission Review of Systems: CONSTITUTIONAL: No weight loss, + fever, chills, weakness or fatigue. HEENT: + Congestion, rhinorrhea. Eyes: No visual loss, blurred vision, double vision or yellow sclerae. Ears, Nose, Throat: No hearing loss, sneezing. SKIN: No rash or itching, lesions, wounds. CARDIOVASCULAR: No chest pain, chest pressure or chest discomfort, palpitations, edema, orthopnea, syncopal events. RESPIRATORY: + Dyspnea, cough, wheezing. No hemoptysis. GASTROINTESTINAL: + Decreased appetite/anorexia. No nausea, vomiting or diarrhea, abdominal pain, melena, BRBPR. GENITOURINARY: No dysuria, frequency, urgency or retention. NEUROLOGICAL: + Expressive aphasia. No headache, dizziness, syncope, paralysis, ataxia, numbness or tingling in the extremities, focal weakness, change in bowel or bladder control, seizure. MUSCULOSKELETAL: + muscle, back pain, joint pain or stiffness. HEMATOLOGIC: + Current evidence of anemia. No easy history of bleeding or bruising. LYMPHATICS: No enlarged nodes. No history of splenectomy. PSYCHIATRIC: No history of depression or anxiety. ENDOCRINOLOGIC: No reports of sweating, cold or heat intolerance. No polyuria or polydipsia. ALLERGIES: No history of asthma, hives, eczema or rhinitis. Vital Signs Vital Signs Vital Signs: 06/22/24 19:34 06/22/24 19:54 06/22/24 19:56 Temperature 98.0 F Temperature Source Oral Pulse Rate 87 87 115 H Respiratory Rate 18 18 16 Blood Pressure 132/80 H 132/80 H 125/76 H Blood Pressure Mean 97 97 92 Pulse Ox 98 98 98 Oxygen Delivery Method Room Air Room Air Room Air Oxygen Flow Rate (L/min) 98 06/22/24 20:15 06/22/24 20:19 06/22/24 20:30 Temperature Temperature Source Pulse Rate 108 H 101 H Respiratory Rate 23 H 22 H Blood Pressure 120/88 H 121/77 H Blood Pressure Mean 98 91 Pulse Ox 94 98 92 Oxygen Delivery Method Room Air Room Air Room Air Oxygen Flow Rate (L/min) 06/22/24 21:00 06/22/24 21:31 Temperature 99.6 F H Temperature Source Oral Pulse Rate 101 H 106 H Respiratory Rate 35 H 30 H Blood Pressure 134/73 H 137/72 H Blood Pressure Mean 89 93 Pulse Ox 94 94 Oxygen Delivery Method Room Air Oxygen Flow Rate (L/min) Weight Weight: 206 lb 2.115 oz Body Mass Index (BMI) 30.4 Physical Exam Narrative Physical Examination: General: Awake, alert, oriented x 3 and cooperative, seated upright in the ED bed, flushed, ill-appearing. Skin: Left color, normal turgor, no icterus, no cyanosis, occasional stage ecchymoses, abrasion, venous stasis changes bilateral lower extremities. HEENT: AT/NC, EOMI, PERRLA, M dry M, no carotid bruits or JVD noted. Lungs: Significantly diminished, greater bases, soft and expiratory wheezing, upper airway secretions audible, mildly increased respiratory rate but no distress. Heart: Irregular, rate improving; no gallop, rub audible. Abdomen: Soft, obese, NTTP, ND, distant normal BS, no appreciated HSM. Extremities: No cyanosis, no clubbing, mild ankle not markedly pitting edema, venous stasis skin changes. Neurological: Patient awake, alert, oriented as noted, cognitive function intact; pupils equally reactive to light and accommodation, cranial nerves grossly normal, moving all 4 extremities, no focal deficits, strength moderately to severely globally decreased given acute illness, sensation intact, finger-nose and [id number] appropriate, equivocal Babinski, complete resolution currently of previously noted expressive aphasia. Psychiatric: Affect appears flat, fatigued, ill-appearing, no acute evidence of depressive or anxiety feelings. Results Lab / Micro Data 06/22/24 20:04 06/22/24 19:44 Labs: Laboratory Results - last 24 hr 06/22/24 19:38: POC Glucose 110 H 06/22/24 19:44: WBC Cancelled, Corrected WBC Cancelled, RBC Cancelled, Hgb Cancelled, Hct Cancelled, MCV Cancelled, MCH Cancelled, MCHC Cancelled, RDW Std Deviation Cancelled, RDW Coeff of Mike Cancelled, Plt Count Cancelled, MPV Cancelled, Immature Gran % (Auto) Cancelled, Neut % (Auto) Cancelled, Lymph % (Auto) Cancelled, Schleicher % (Auto) Cancelled, Eos % (Auto) Cancelled, Baso % (Auto) Cancelled, Absolute Neuts (auto) Cancelled, Absolute Lymphs (auto) Cancelled, Total Counted Cancelled, Neutrophils % (Manual) Cancelled, Band Neutrophils % Cancelled, Lymphocytes % (Manual) Cancelled, Monocytes % (Manual) Cancelled, Eosinophils % (Manual) Cancelled, Basophils % (Manual) Cancelled, Metamyelocytes % Cancelled, Myelocytes % Cancelled, Promyelocytes % Cancelled, Blast Cells % Cancelled, Plasma Cell % (Manual) Cancelled, Other Cells % Cancelled, Nucleated RBC % Cancelled, Nucleated RBCs/100 WBC Cancelled, Differential Comment Cancelled, Diff Path Review Cancelled, Hypersegmented Neuts Cancelled, Atypical Lymphocytes Cancelled, Reactive Lymphocytes Cancelled, Smudge Cells Cancelled, Toxic Granulation Cancelled, Toxic Vacuolation Cancelled, Dohle Bodies Cancelled, Cindy Rods Cancelled, Platelet Estimate Cancelled, Plt Morphology Comment Cancelled, RBC Morphology Cancelled 06/22/24 19:44: RBC Morphology Cancelled, Polychromasia Cancelled, Hypochromasia Cancelled, Basophilic Stippling Cancelled, Anisocytosis Cancelled, Microcytosis Cancelled, Macrocytosis Cancelled, Spherocytes Cancelled, Sickle Cells Cancelled, Target Cells Cancelled, Tear Drop Cells Cancelled, Ovalocytes Cancelled, Stomatocytes Cancelled, Boyd-Clarks Bodies Cancelled, Grant Cells Cancelled, Bite Cells Cancelled, Crenated Cell Cancelled, Acanthocytes (Spur) Cancelled, Rouleaux Cancelled, Schistocytes Cancelled, Sodium 132 L, Potassium 4.4, Chloride 101, Carbon Dioxide 23.0, Anion Gap 9, BUN 22 H, Creatinine 1.48 H, Estim Creat Clear Calc 50.94, Est GFR (MDRD) Af Amer 60, Est GFR (MDRD) Non-Af 50 L, BUN/Creatinine Ratio 14.9, Glucose 108 H, Calcium 8.4 L, Troponin I High Sens 13 06/22/24 20:00: PT 21.7 H, INR 1.8, APTT 26.7 06/22/24 20:04: WBC 6.1, RBC 4.23 L, Hgb 12.7 L, Hct 38.0 L, MCV 89.8, MCH 30.0, MCHC 33.4, RDW Std Deviation 41.1, RDW Coeff of Mike 12.5, Plt Count 118 L, MPV 12.1 H, Immature Gran % (Auto) 0.300, Neut % (Auto) 81.9 H, Lymph % (Auto) 6.4 L, Schleicher % (Auto) 10.9 H, Eos % (Auto) 0.2, Baso % (Auto) 0.3, Absolute Neuts (auto) 5.0, Absolute Lymphs (auto) 0.39 L, Nucleated RBC % 0 06/22/24 20:45: Urine Color Yellow, Urine Clarity Clear, Urine pH 6.5, Ur Specific Mcclusky 1.010, Urine Protein 30 H, Urine Glucose (UA) Normal, Urine Ketones Negative, Urine Occult Blood 25 H, Urine Nitrite Negative, Urine Bilirubin Negative, Urine Urobilinogen Normal, Ur Leukocyte Esterase Negative, Urine RBC 0-5 SEEN, Urine WBC 0 SEEN, Ur Squamous Epith Cells 0 SEEN, Urine Bacteria 0 SEEN, Urine Mucus 0 SEEN Micro: Microbiology 06/22/24 20:00 Mucosa - Nose SARS-CoV-2, Influenza & RSV (PCR) - Final Influenzae A Imaging Radiology Impression Brain CT 06/22/24 19:43 IMPRESSION: Left parietal hypodensity favoring infarction of undetermined age. MRI is recommended to exclude an acute infarction. Critical results were communicated to Dr. Bryce Jaime at 7:56 p.m. One or more dose reduction techniques were used (e.g., Automated exposure control, adjustment of the mA and/or kV according to patient size, use of iterative reconstruction technique). Reading Location: [facility] Head/Neck CTA 06/22/24 19:44 IMPRESSION: Occluded right internal carotid artery. Thready opacification of a diminutive right cervical vertebral artery. Critical results communicated to Dr. Agrawal 8:15 p.m. One or more dose reduction techniques were used (e.g., Automated exposure control, adjustment of the mA and/or kV according to patient size, use of iterative reconstruction technique). Reading Location: [facility] Chest X-Ray 06/22/24 21:05 IMPRESSION: Pulmonary vascular congestion. Cardiomegaly. Reading Location: [facility] Assessment & Plan Assessment/Plan (1) Expressive aphasia: (2) Influenza A: PLAN: Plan The patient is a 74-year-old male with past medical history obesity, CKD stage III unclear subtype per GFR trending, hypertension, hyperlipidemia, BPH with obstructive pathology, limb movement disorder, MERY on CPAP, PAF on Xarelto who presents to the [facility] ED on 06/22/2024 with history of last known well at 10:30 in the morning per his who is seen him at that point aside from his persistent URI type symptoms which has been ongoing for the last 2 days including fever, chills, cough, shortness of breath, body aches, decreased appetite with worsening fatigue and malaise however she returned home at approximately 6 PM and noted immediately that he had expressive aphasia prompting transition to the ED for evaluation. #1. Expressive aphasia concerning for CVA: Patient was administered full-strength aspirin therapy in the ED. Will admit to PCU, will obtain MRI Brain, ECHO, PT/OT/Speech/Nutrition evaluation per protocol. Will allow permissive HTN, maintain on asa, add statin w/ AM FLP, fall precautions. Mag, TSH, FLP, HgbA1c requested. Maintain on fall and aspiration precautions. Will continue neurology consultation. #2. Acute influenza A viral syndrome: Patient is currently maintained appropriately on room air however if necessary will supplemental oxygen and wean as tolerated to room air, will maintain on ATC budesonide therapy, PRN albuterol, continue Tamiflu with renal dosing as needed per pharmacy direction, given significant wheezing upon evaluation will also initiate IV Solu-Medrol, HOB, IS parameters. #3. PAF with RVR, improved with IV fluids: EKG upon presentation with atrial fibrillation with RVR however patient was concerning only dehydrated with recent viral illness, rate improved with fluids alone, will continue Xarelto, attempting to maintain permissive hypertension but once appropriate will be immediately resume patient metoprolol regimen. #4. Hypertension: Will maintain permissive hypertension with current agents per stroke protocol however given underlying also concurrent atrial fibrillation would plan to resume especially metoprolol once clinically appropriate. #5. Hyperlipidemia: Will initiate high-dose statin therapy, FLP in AM. #6. BPH with obstructive pathology: Per current list not on any regimen, will monitor and if necessary certainly low threshold to add Flomax if needed. #7. Normocytic anemia, appears new chronicity: Admission hemoglobin 12.7, MCV 89.8, previous hemoglobin noted remotely in 2023 in the 13-14 range, will continue to trend CBC to further elucidate #8. Chronic Kidney Disease Stage III, unclear subtype per GFR trending: Admission BUN/Cr 22/1.48, GFR 50, baseline renal function 1.4-1.5 more recently however labs are remote and from early in 2023, repeat BMP in AM. #9. Obesity: Weight loss and lifestyle changes encouraged. #10. MERY: CPAP nightly. #11. DVT prophylaxis: Will continue patient home Xarelto regimen. #12. CODE status: Patient ANUJA is his who is present and his son is and living will is currently in place. Discussed CODE status at length including difference between FULL code, DNR-CCA and DNR-CC status. Following discussions about the differences in these status, requested DNR CCA with intubation with several examples discussed and confirmation. Advanced Care Planning Face to Face Time: 16 minutes. Charges/Coding Visit Charges Inpatient E&M: 99767 Init Hosp L3 Procedures Hospitalists Procedures: 12437 Advncd Care Plan 30 Min
[2024-06-22] MEDS: Oseltamivir Phosphate 75 MG Capsule PO (22:20)
[2024-06-22 22:28] LABS: Magnesium 1.8 mg/dL (1.6-2.6)
--- NOTE | 2024-06-22 23:09 | ECHOCS_ITS ---
Version 2 Reason For Study: CVA Procedure This was a 2D Doppler, Color Flow transthoracic echocardiogram. The study was technically difficult. Exam performed portable in patient room. Left Ventricle Normal LV size. Left ventricular systolic function is normal. The left ventricular ejection fraction is 55 %. No regional wall motion abnormalities noted. Right Ventricle Normal RV size. Normal systolic function. Atria The left atrium is mildly enlarged. Normal right atrium. Mitral Valve Bileaflet diffuse mitral valve thickening. Mild (1+) eccentric mitral valve insufficiency. Tricuspid Valve Normal tricuspid valve. Mild (1+) tricuspid valve insufficiency. Pulmonary artery systolic pressure is 34 mmHg. Aortic Valve Trisinus/trileaflet aortic valve. Pulmonic Valve Normal pulmonic valve. Great Vessels Normal aortic root. The pulmonary artery is normal size. Normal inferior vena cava. Pericardium/Pleural No pericardial effusion. Medication Diluted definity 1.5ml given slow IV push to enhance endocardial definition. MMode/2D Measurements & Calculations LVIDd: 4.6 cm IVSd: 0.93 cm Ao root diam: 3.8 cm LVIDs: 3.3 cm LVPWd: 1.1 cm RVDd: 3.7 cm FS: 28.2 % _ LAV(MOD-bp): 71.9 ml LVAd ap4: 32.2 cm2 SV(MOD- sp4): 53.7 ml LAV(MOD-bp) Indexed: 34.2 ml/m2 LVLd ap4: 8.2 cm SI(MOD- sp4): 25.6 ml/m2 LAV(MOD-sp2): 66.0 ml EDV(MOD-sp4): 100.3 ml LAV(MOD-sp4): 65.8 ml EDV(sp4-el): 107.7 ml LVAs ap4: 20.0 cm2 LVLs ap4: 7.1 cm ESV(MOD-sp4): 46.6 ml ESV(sp4-el): 48.0 ml EF(MOD-sp4): 53.6 % EF(sp4-el): 55.5 % _ SV(sp4-el): 59.8 ml LA A4 area: 23.1 cm2 LA dimension(2D): 4.2 cm _ RA A4 area: 20.8 cm2 TAPSE: 1.4 cm Doppler Measurements & Calculations MV E max thuy: 107.6 cm/sec MV V2 max: 117.8 cm/sec Ao V2 max: 98.6 cm/sec MV max P.6 mmHg Ao max P.9 mmHg MV V2 mean: 65.1 cm/sec Ao V2 mean: 70.9 cm/sec MV mean P.1 mmHg Ao mean P.3 mmHg MV V2 VTI: 30.5 cm Ao V2 VTI: 21.1 cm AV (velocity ratio): 0.90 _ LV V1 max: 94.9 cm/sec TR max thuy: 281.0 cm/sec LV V1 max P.6 mmHg TR max P.6 mmHg LV V1 mean P.0 mmHg LV V1 mean: 66.0 cm/sec LV V1 VTI: 18.9 cm ECHO/Echo Complete W/ Contrast Interpretation Summary Normal LV size. Left ventricular systolic function is normal. The left ventricular ejection fraction is 55 %. Pulmonary artery systolic pressure is 34 mmHg. The left atrium is mildly enlarged. Contrast injection was performed. Ordering Physician: Cecy Villafana Performed By: Bryce Gunderson RCS
[2024-06-22 23:15] LABS: Procalcitonin 0.12 ng/mL (0.00-0.09)
[2024-06-22] MEDS: Atorvastatin Calcium 80 MG Tablet PO (23:39)
[2024-06-22] MEDS: 0.9% Normal Saline (1000mL) 1,000 ML 100 ML IV (23:39)
[2024-06-22] MEDS: MethylPREDNISolone 125 MG/2 ML Vial 40 MG IV (23:40)
[2024-06-23] VITALS (8 sets, daily range): BP systolic 114–135; BP diastolic 74–88; PULSE 70–101; RESP 16–18; TEMP 36.1–36.6; O2SAT 91–98; BMI 30.7
[2024-06-23 00:54] LABS: Blood Gas Specimen Type VEN; O2 Delivery Device Room Air; SITE R Radial; VBG BASE EXCESS 0 mmol/L (-1.0-3.5); VBG Bicarbonate 25 mmol/L (22-26); VBG PO2 30 mmHg (25-40); VBG SO2 57 % (50-70); VBG TCO2 26 mmol/L (23-33); VBG pCO2 40.5 mmHg (41-51)
--- NOTE | 2024-06-23 00:57 | CPS ---
ran as VBG
--- NOTE | 2024-06-23 01:12 | CPS ---
PAP machine placed in patient's room, will try PAP therapy when patient's nausea resolves.
[2024-06-23] MEDS: 0.9% Saline Lock 10 ML Syringe IV (06:16)
[2024-06-23] MEDS: MethylPREDNISolone 125 MG/2 ML Vial 40 MG IV (06:16)
--- NOTE | 2024-06-23 07:00 | MRI_ITS ---
PROCEDURE: BRAIN WITHOUT CONTRAST TECHNIQUE: Multiplanar, multisequence MRI of the brain without intravenous gadolinium-based contrast. COMPARISON: None. FINDINGS: No evidence of acute ischemia or mass lesion.There is a chronic area of encephalomalacia involving the left parieto-occipital lobe. A couple of punctate areas of T2/FLAIR signal hyperintensity in the deep white matter is nonspecific, but most likely due to chronic ischemic microangiopathy. The ventricles and sulci are normal in appearance.No intracranial hemorrhage.No extra-axial collection or midline shift. The posterior fossa structures are within normal limits. The orbits are unremarkable. There is a mucous retention cyst in the left maxillary sinus.The calvarium and soft tissues are unremarkable. MRI/Brain without Contrast IMPRESSION: 1. No evidence of acute ischemia. 2. 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 [facility]
[2024-06-23 07:48] LABS: Absolute Lymphocyte Count 0.47 X10^3/uL (0.83-4.51); Absolute Neutrophil Count 4.4 X10^3/uL (2.0-7.7); Basophil# 0.01 X10^3/uL; Basophil% 0.2 % (0-1); Hematocrit 41.6 % (40-54); Hemoglobin 13.7 g/dL (13.0-16.5); Lymphocyte # 0.47 X10^3/ul (0.83-4.51); Lymphocyte % 9.3 % (19-41); Mean Corp Hgb Conc 32.9 g/dL (32-36); Mean Corpuscular Hgb 29.9 pg (27.0-32.0); Mean Corpuscular Volume 90.8 fL (80-94); Mean Platelet Vol. 14.1 fl (6.2-12.0); Monocyte# 0.17 X10^3/uL; Monocyte% 3.4 % (0-10); NRBC Flagged by Analyzer 0 % (0-5); Neutrophil # 4.37 X10^3/uL (2.7-7.7); Neutrophil % 86.7 % (47-70); Platelet Count 85 K/mm3 (150-450); RBC Distribution Width CV 12.6 % (11.6-14.6); RBC Distribution Width SD 41.6 fl (35.1-43.9); Red Blood Count 4.58 M/mm3 (4.6-6.2)
[2024-06-23 08:10] LABS: ALB/GLOB Ratio 0.8 RATIO (0.9-2.4); AST(SGOT) 32 U/L (15-37); Alanine Aminotransfer ALT/SGPT 46 U/L (16-61); Alkaline Phosphatase 61 U/L (45-117); Anion Gap 9 (5-15); BUN 20 mg/dL (7-18); BUN/Creat Ratio 16.1 RATIO (10-20); Calcium,Total 8.4 mg/dL (8.5-10.1); Chloride 106 mmol/L (98-107); Cholesterol 158 mg/dL (200); Creatinine, Serum 1.24 mg/dL (0.70-1.30); EST Glomerular Filtration Rate 61 mL/min (>60); Est Glom Filt Rate - Afr Amer 74 mL/min (>60); Estimated Creatinine Clearance 61.05 ml/min; Globulin 3.7 g/dL (2.2-4.2); Glucose 153 mg/dL (74-106); High Density Lipoprotein 51 mg/dL; Potassium 4.1 mmol/L (3.5-5.1); Protein, Total 6.7 g/dL (6.4-8.2); Sodium Level 137 mmol/L (136-145); Triglycerides 48 mg/dL; Very Low Density Lipoprotein 10 mg/dL (5-40)
[2024-06-23 08:24] LABS: Differential Comment SCANNED; Differential Indicated SCAN CRITERIA MET; Platelet Estimate MOD DEC (ADEQ)
[2024-06-23] MEDS: Oseltamivir Phosphate 30 MG Capsule PO (10:15)
[2024-06-23] MEDS: Aspirin 81 MG TAB.CHEW PO (10:15)
[2024-06-23] MEDS: Furosemide 40 MG/4 ML Vial IV (10:25)
[2024-06-23 10:40] LABS: BNP,B-Type NATRIURETIC PEPTIDE 299.6 pg/mL (0-100)
--- NOTE | 2024-06-23 15:00 | CASEMGMT ---
VIRGIL NOEL Face to Face with patient for initial transition planning/care coordination assessment. RN CM introduced self and role at [facility]. Patient sitting in chair, alert and oriented, at bedside. Patient willing to participate in assessment and is able to answer all questions appropriately. Care providers, pharmacy, and demographics verified. Strata: 1 PCP: Uma Specialists: Kamron, 3d specialist; Preferred Pharmacy: [facility]; [facility] retail at discharge. Insurance: [facility] Prescription Benefit: yes Living Will/HPOA: yes, Isabel Veliz LNOK: , son Living Arrangements: Patient lives with in a single story home, 3 steps and railing to enter the home. Patient is independent at home. Transportation: self, DME/HHC: patient has bipap at home. No previous HHC or SNF. Prefers [employer] for DME if needed. Patient wishes to discharge home, denies need for home health at this time. Patient states he has no further needs or concerns at this time. CM to follow for discharge planning needs that may arise. Disposition Plan: Patient to discharge home with family support and follow-up plans in place. Will monitor for home oxygen at discharge. Rosalie JONES, RN, CM
[2024-06-23] MEDS: Rivaroxaban 20 MG Tablet PO (15:25)
--- NOTE | 2024-06-23 17:12 | DCINST_ITS ---
Discharge Instructions Diet Discharge Diet: No restrictions DC O2, CPAP, BIPAP needs RN Home O2 Qualification: Home O2 Qualification: Is the patient on home oxygen No 06/23/24 15:16 Home O2 Qualification: AT REST 1- Pulse Ox at rest 92 06/23/24 15:16 Home O2 Qualification: WITH AMBULATION 1- Pulse Ox with ambulation 94 06/23/24 15:16 1- Oxygen Flow Rate with 0 06/23/24 15:16 ambulation Home O2 Discharge instructions: No Dressing / Incision Discharge Activity: No Restrictions Follow Up Care Test Results: Test results from this visit will be discussed in further detail at your follow- up appointment, if applicable. Discharge Plan Admission Admit Date/Time: 06/22/24 21:57 Primary Reason for Your Visit: difficulty w/ speaking, flu-like symptoms Attending Provider: Norbert Avelar Primary Care Provider: Panda Eaton Consulting Providers: Mickey Prather; Danya Rhodes; Kristin Castaneda; Alicia Umaña; Jesica Villavicencio; Gume Aranda; Mandy Genao; Rudy Mari; Alex Merida; Vinny Dalton; Sarahi Ashraf; Jorge Falcon; Betsy Lambert; Erendira Grimaldo; Karrie Ralph; Marvel Alejandro; Deniz Strong; Cleveland Terrazas; Amber George; Carrie Gonzalez; Cecy Villafana Instructions Additional Instructions / Restrictions: Please take 3 more days of Tamiflu to complete 5-day course total. Continue other home medications as normal. Follow-up with your primary care doctor as needed. Discharge Orders/Prescriptions Prescriptions: New oseltamivir 75 mg Capsule 75 mg PO BID 3 Days Qty: 6 0RF Continued losartan 50 mg tablet 50 mg PO DAILY Qty: 90 3RF metoprolol succinate [Toprol XL] 50 mg tablet extended release 24 hr 50 mg PO QDAY Qty: 90 3RF Xarelto 20 mg tablet 20 mg PO QPM Qty: 30 11RF Rx Instructions: must administer with evening meal Referrals / Follow Up: Panda Eaton, [Primary Care Provider] - Disposition Disposition (needs filled in before D/C Order can be placed): Home, Self Care
--- NOTE | 2024-06-23 17:14 | DS.PCM_ITS ---
Providers Date of Admission: 06/22/24 Date of Discharge: 06/23/24 Primary Care Physician: Dr. Panda Eaton, Consultations 06/22/24 23:09 Consult: Tele-Neurology Routine Consulting Provider: [facility] Reason for Consult: Acute Ischemic Stroke/TIA EMERGENT Consult: No MD Notified: Yes Date Notified: 06/22/24 Time Notified: 23:32 Method of Notification: Answering Service Nursing Unit Staff Notify [facility] of Tele-Neurology Consult: Yes Reason For Visit: EXPRESSIVE APHASIA, INFLUENZA A Diagnosis Discharge Diagnosis (1) Expressive aphasia: Status: Acute Code(s): R47.01 - Aphasia (2) Influenza A: Status: Acute Code(s): J10.1 - Influenza due to other identified influenza virus with other respiratory manifestations Medications at Discharge Home Medications losartan 50 mg tablet 50 mg PO DAILY #90 tabs 08/19/23 rivaroxaban 20 mg tablet (Xarelto) 20 mg PO QPM #30 tabs 09/22/23 metoprolol succinate 50 mg tablet,extended release 24 hr (Toprol XL) 50 mg PO QDAY #90 tabs 05/03/24 oseltamivir 75 mg capsule 75 mg PO BID 3 days #6 caps 06/23/24 Hospital Course Operations None Procedures EKG, Transthoracic echo and - (CT brain, CTA head/neck, MRI brain, chest x-ray) Summary of Care Provided Minutes Spent on Discharge: 35 Hospital Course: Patient is a 74-year-old male who presented [facility] ED on 06/22/2024 with expressive aphasia and flulike symptoms. Short hospital course as noted below. Patient discharged home with no therapy needs in stable condition on 06/23. 1. Expressive aphasia, CVA ruled out ? Neurology followed. CT brain unremarkable. CTA head/neck showed occluded right internal carotid artery, was otherwise unremarkable. MRI brain unremarkable. Lipid profile with total cholesterol 158, LDL 97, HDL 51. Per neurology, good collateral circulation with right sided neck vasculature, no need for intervention for right ICA. Echo unremarkable. Continue Lipitor and Xarelto on discharge. 2. Influenza A infection with hypoxia, improving ? Positive for flu A on admit. Had mild hypoxia initially, weaned off supplemental oxygen on hospital day 2. Had mild flu symptoms that were improving by hospital day 2. Treated with Tamiflu while inpatient and discharged on Tamiflu to complete 5-day course total. 3. Paroxysmal A-fib with RVR ? Had A-fib with RVR on admit, improved with IV fluids. Continue home Xarelto and Toprol on discharge. Chronic medical conditions: ? Class I obesity: BMI 30 on admit. Complicated hospital course, care and prognosis. ? Hypertension: Held home losartan during hospitalization for permissive hypertension, restarted on discharge. ? Hyperlipidemia: Continue home statin. ? CKD stage III: Creatinine stable at baseline 1.2-1.4 during hospitalization. ? MERY: Continue home CPAP. *Patient notably was admitted under inpatient status but improved more quickly than anticipated and was stable for discharge home on hospital day 2. Total clinical time spent by myself addressing the patient's medical issues, reviewing all the data, and collaborating with patient's care team: 35 minutes. Physical Exam Const alert, oriented x3 and no apparent distress Constitutional Narrative: Pleasant elderly male, class I obesity, sitting back comfortably in bed, conversing normally, in no acute distress. General Appearance: cooperative and comfortable HEENT normocephalic, head/scalp atraumatic, hearing grossly normal bilaterally, nasal mucous membranes and turbinates normal and moist oral mucous membranes Eyes PERRL, EOMs intact bilaterally and conjunctivae normal Neck full ROM Chest inspection of chest normal Resp normal respiratory effort, normal air movement, no use of accessory muscles and clear to auscultation bilaterally Cardio regular rate, regular rhythm, no murmurs and peripheral pulses 2+ throughout GI normal to inspection, nondistended, normoactive bowel sounds, soft to palpation, non-tender and non-distended Back/Spine normal ROM Extremity normal to inspection, full ROM and no pedal edema Skin no rashes or lesions noted Neuro oriented x3, CN's II-XII intact bilaterally, moves all extremities and no focal motor deficits Speech: speech normal Motor Exam: strength 5/5 throughout Psych mental status grossly normal Weight / BMI Weight Weight: 94.347 kg Body Mass Index (BMI) 30.7 ABG / Lab / Microbiology Data 06/23/24 06:26 06/23/24 06:26 Laboratory: Laboratory Results - last 24 hr 06/22/24 19:38: POC Glucose 110 H 06/22/24 19:44: WBC Cancelled, Corrected WBC Cancelled, RBC Cancelled, Hgb Cancelled, Hct Cancelled, MCV Cancelled, MCH Cancelled, MCHC Cancelled, RDW Std Deviation Cancelled, RDW Coeff of Mike Cancelled, Plt Count Cancelled, MPV Cancelled, Immature Gran % (Auto) Cancelled, Neut % (Auto) Cancelled, Lymph % (Auto) Cancelled, Andrews % (Auto) Cancelled, Eos % (Auto) Cancelled, Baso % (Auto) Cancelled, Absolute Neuts (auto) Cancelled, Absolute Lymphs (auto) Cancelled, Total Counted Cancelled, Neutrophils % (Manual) Cancelled, Band Neutrophils % Cancelled, Lymphocytes % (Manual) Cancelled, Monocytes % (Manual) Cancelled, Eosinophils % (Manual) Cancelled, Basophils % (Manual) Cancelled, Metamyelocytes % Cancelled, Myelocytes % Cancelled, Promyelocytes % Cancelled, Blast Cells % Cancelled, Plasma Cell % (Manual) Cancelled, Other Cells % Cancelled, Nucleated RBC % Cancelled, Nucleated RBCs/100 WBC Cancelled, Differential Comment Cancelled, Diff Path Review Cancelled, Hypersegmented Neuts Cancelled, Atypical Lymphocytes Cancelled, Reactive Lymphocytes Cancelled, Smudge Cells Cancelled, Toxic Granulation Cancelled, Toxic Vacuolation Cancelled, Dohle Bodies Cancelled, Cindy Rods Cancelled, Platelet Estimate Cancelled, Plt Morphology Comment Cancelled, RBC Morphology Cancelled 06/22/24 19:44: RBC Morphology Cancelled, Polychromasia Cancelled, Hypochromasia Cancelled, Basophilic Stippling Cancelled, Anisocytosis Cancelled, Microcytosis Cancelled, Macrocytosis Cancelled, Spherocytes Cancelled, Sickle Cells Cancelled, Target Cells Cancelled, Tear Drop Cells Cancelled, Ovalocytes Cancelled, Stomatocytes Cancelled, [place] Bodies Cancelled, Toan Cells Cancelled, Bite Cells Cancelled, Crenated Cell Cancelled, Acanthocytes (Spur) Cancelled, Rouleaux Cancelled, Schistocytes Cancelled, Sodium 132 L, Potassium 4.4, Chloride 101, Carbon Dioxide 23.0, Anion Gap 9, BUN 22 H, Creatinine 1.48 H , Estim Creat Clear Calc 50.94, Est GFR (MDRD) Af Amer 60, Est GFR (MDRD) Non-Af 50 L, BUN/Creatinine Ratio 14.9, Glucose 108 H, Calcium 8.4 L, Magnesium 1.8, Troponin I High Sens 13 06/22/24 20:00: PT 21.7 H, INR 1.8, APTT 26.7 06/22/24 20:04: WBC 6.1, RBC 4.23 L, Hgb 12.7 L, Hct 38.0 L, MCV 89.8, MCH 30.0, MCHC 33.4, RDW Std Deviation 41.1, RDW Coeff of Mike 12.5, Plt Count 118 L, MPV 12.1 H, Immature Gran % (Auto) 0.300, Neut % (Auto) 81.9 H, Lymph % (Auto) 6.4 L , Andrews % (Auto) 10.9 H, Eos % (Auto) 0.2, Baso % (Auto) 0.3, Absolute Neuts (auto) 5.0, Absolute Lymphs (auto) 0.39 L, Nucleated RBC % 0 06/22/24 20:45: Urine Color Yellow, Urine Clarity Clear, Urine pH 6.5, Ur Specific [place] 1.010, Urine Protein 30 H, Urine Glucose (UA) Normal, Urine Ketones Negative, Urine Occult Blood 25 H, Urine Nitrite Negative, Urine Bilirubin Negative, Urine Urobilinogen Normal, Ur Leukocyte Esterase Negative, Urine RBC 0-5 SEEN, Urine WBC 0 SEEN, Ur Squamous Epith Cells 0 SEEN, Urine Bacteria 0 SEEN, Urine Mucus 0 SEEN 06/22/24 22:36: Procalcitonin 0.12 H 06/23/24 06:26: WBC 5.0, RBC 4.58 L, Hgb 13.7, Hct 41.6, MCV 90.8, MCH 29.9, MCHC 32.9, RDW Std Deviation 41.6, RDW Coeff of Mike 12.6, Plt Count 85 L, MPV 14.1 H, Immature Gran % (Auto) 0.400, Neut % (Auto) 86.7 H, Lymph % (Auto) 9.3 L , Andrews % (Auto) 3.4, Eos % (Auto) 0.0, Baso % (Auto) 0.2, Absolute Neuts (auto) 4.4, Absolute Lymphs (auto) 0.47 L, Nucleated RBC % 0, Differential Comment SCANNED, Platelet Estimate MOD DEC, Sodium 137, Potassium 4.1, Chloride 106, Carbon Dioxide 22.0, Anion Gap 9, BUN 20 H, Creatinine 1.24, Estim Creat Clear Calc 61.05, Est GFR (MDRD) Af Amer 74, Est GFR (MDRD) Non-Af 61, BUN/Creatinine Ratio 16.1, Glucose 153 H, Calcium 8.4 L, Total Bilirubin 0.70, AST 32, ALT 46, Alkaline Phosphatase 61, B-Natriuretic Peptide 299.6 H, Total Protein 6.7, A lbumin 3.0 L, Globulin 3.7, Albumin/Globulin Ratio 0.8 L, Triglycerides 48, Cholesterol 158, LDL Cholesterol 97, VLDL Cholesterol 10, HDL Cholesterol 51, TSH 1.440 Microbiology: Microbiology 06/22/24 20:00 Mucosa - Nose SARS-CoV-2, Influenza & RSV (PCR) - Final Influenzae A ABG: ABG 06/23/24 00:51 Specimen Type LINSEY Sample Site R Radial O2 % 21.0 VBG pH 7.40 VBG pO2 30 VBG HCO3 25 VBG Total CO2 26 VBG O2 Sat (Calc) 57 VBG Base Excess 0 POC Mix VBG pCO2 Pt Tmp 40.5 L O2 Delivery Device Room Air Radiography Diagnostic Testing: Radiology Impression Brain CT 06/22/24 19:43 IMPRESSION: Left parietal hypodensity favoring infarction of undetermined age. MRI is recommended to exclude an acute infarction. Critical results were communicated to Dr. Bryce Jaime at 7:56 p.m. One or more dose reduction techniques were used (e.g., Automated exposure control, adjustment of the mA and/or kV according to patient size, use of iterative reconstruction technique). Reading Location: [facility] Head/Neck CTA 06/22/24 19:44 IMPRESSION: Occluded right internal carotid artery. Thready opacification of a diminutive right cervical vertebral artery. Critical results communicated to Dr. Agrawal 8:15 p.m. One or more dose reduction techniques were used (e.g., Automated exposure control, adjustment of the mA and/or kV according to patient size, use of iterative reconstruction technique). Reading Location: [facility] Chest X-Ray 06/22/24 21:05 IMPRESSION: Pulmonary vascular congestion. Cardiomegaly. Reading Location: [id number] Echocardiogram 06/22/24 23:09 Interpretation Summary Normal LV size. Left ventricular systolic function is normal. The left ventricular ejection fraction is 55 %. Pulmonary artery systolic pressure is 34 mmHg. The left atrium is mildly enlarged. Contrast injection was performed. Ordering Physician: Cecy Villafana Performed By: Bryce Gunderson RCS Brain MRI 06/23/24 07:00 IMPRESSION: 1. No evidence of acute ischemia. 2. 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 Reading Location: [facility] Instructions Discharge Diet: No restrictions DC O2, CPAP, BIPAP Needs RN Home O2 Qualification: Home O2 Qualification: Is the patient on home oxygen No 06/23/24 15:16 Home O2 Qualification: AT REST 1- Pulse Ox at rest 92 06/23/24 15:16 Home O2 Qualification: WITH AMBULATION 1- Pulse Ox with ambulation 94 06/23/24 15:16 1- Oxygen Flow Rate with 0 06/23/24 15:16 ambulation PSN CPAP & BiPAP: BiPAP & CPAP Settings per PSN Mode CPAP 06/23/24 00:55 Bipap Delivery Device Face Mask 06/23/24 00:55 BiPAP Expiratory Pressure 9 06/23/24 00:55 Total Flow Rate 5 06/23/24 00:55 Home O2 Discharge instructions: No Meaningful Use Info Meaningful Use Meaningful Use Diagnoses (Choose all that apply): None applicable Ischemic Stroke Statin Dosing Therapy Reference: STATIN DOSE THERAPY REFERENCE: * Patients > 75 years receive moderate or high dose statin therapy. * Patients 75 years or YOUNGER should receive HIGH intensity statin dose unless contraindicated. You will be required to document reason for non-treatment if statin daily dose does not meet guidelines. HIGH DOSE STATIN THERAPY DAILY Atorvastatin > than or = to 40 mg Rosuvastatin > than or = to 20 mg Amlodipine + Atorvastatin > than or = to 2.5/40 mg Ezetimibe + Simvastatin 10/80 mg Simvastatin 80mg Discharge Plan Admission Admit Date/Time: 06/22/24 21:57 Primary Reason for Your Visit: difficulty w/ speaking, flu-like symptoms Attending Provider: Norbert Avelar Primary Care Provider: Panda Eaton Consulting Providers: Mickey Prather; Danya Rhodes; Kristin Castaneda; Alicia Umaña; Jesica Villavicencio; Gume Aranda; Mandy Genao; Rudy Mari; Alex Merida; Vinny Dalton; Sarahi Ashraf; Jorge Falcon; Betsy Lambert; Erendira Grimaldo; Karrie Ralph; Marvel Alejandro; Deniz Strong; Cleveland Terrazas; Amber George; Carrie Gonzalez; Cecy Villafana Instructions Additional Instructions / Restrictions: Please take 3 more days of Tamiflu to complete 5-day course total. Continue other home medications as normal. Follow-up with your primary care doctor as needed. Discharge Orders/Prescriptions Prescriptions: New oseltamivir 75 mg Capsule 75 mg PO BID 3 Days Qty: 6 0RF Continued losartan 50 mg tablet 50 mg PO DAILY Qty: 90 3RF metoprolol succinate [Toprol XL] 50 mg tablet extended release 24 hr 50 mg PO QDAY Qty: 90 3RF Xarelto 20 mg tablet 20 mg PO QPM Qty: 30 11RF Rx Instructions: must administer with evening meal Referrals / Follow Up: Panda Eaton DO [Primary Care Provider] - Disposition Disposition (needs filled in before D/C Order can be placed): Home, Self Care Charges/Coding Visit Charges Inpatient E&M: 66649 Disch Hosp >30min
--- NOTE | 2024-06-23 18:12 | CON.PCM.NE_ITS ---
Assessment and Plan: Neuro Assessment/Plan ADONIS COLVIN is a 74 M with a past medical history of afib, HTN presnted with expressive aphasia likely due TIA Diagnosis: TIA CTA Occluded right internal carotid artery. Plan: cont Xarelto cont Lipitor TTE with no acute findings, Vascular risk modification follow up with neurology HPI Consult Data Date of Consult: 06/23/24 HPI Narrative HPI Narrative: ADONIS COLVIN, is a 74 M who presents with transient episode of expressive aphasia that resolved, stroke activation was called, CT head showed no acute findings, CTA showed occluded right carotid ( unclear chronicity) [facility] Medical History Obesity CKD (chronic kidney disease), stage III MERY on CPAP Essential hypertension Hyperlipidemia BPH (benign prostatic hyperplasia) PLMD (periodic limb movement disorder) Home Medications ?Medication ?Instructions ?Recorded ?Last Taken ?Type losartan 50 mg tablet 50 mg PO DAILY #90 tabs 08/0806/21/24 Rx rivaroxaban 20 mg tablet (Xarelto) 20 mg PO QPM #30 ta bs 09/22/23 06/22/24 10:00 Rx metoprolol succinate 50 mg 50 mg PO QDAY #90 tabs 04/1706/22/24 10:00 Rx tablet,extended release 24 hr (Toprol XL) oseltamivir 75 mg capsule 75 mg PO BID 3 days #6 caps 06/23/24 Unknown Rx Allergy/AdvReac Type Severity Reaction Status Date / Time Penicillins Allergy Unknown Rash Verified 05/03/24 09:58 lisinopril AdvReac Unknown cough Verified 05/03/24 09:58 Family History (Updated 06/23/24 @ 01:[address] Cecy Villafana MD) Mother Diabetes CVA (cerebral vascular accident) Father Dementia Surgical History History of appendectomy (~1969) History of eye surgery (~1989) Social History (Updated 06/23/24 @ 01:[address] Cecy Villafana MD) household members: spouse Smoking Status: Never smoker alcohol intake: never substance use type: does not use caffeine: Yes Type: coffee Number of servings: 1 Vital Signs Vital Signs Vital Signs: 06/22/24 19:34 06/22/24 19:54 06/22/24 19:56 Temperature 98.0 F Temperature Source Oral Pulse Rate 87 87 115 H Respiratory Rate 18 18 16 Respiratory Effort Respiratory Depth Respiratory Pattern Blood Pressure 132/80 H 132/80 H 125/76 H Blood Pressure Mean 97 97 92 Blood Pressure Source Blood Pressure Position Blood Pressure Location Pulse Ox 98 98 98 Oxygen Delivery Method Room Air Room Air Room Air Oxygen Flow Rate (L/min) 98 06/22/24 20:15 06/22/24 20:19 06/22/24 20:30 Temperature Temperature Source Pulse Rate 108 H 101 H Respiratory Rate 23 H 22 H Respiratory Effort Respiratory Depth Respiratory Pattern Blood Pressure 120/88 H 121/77 H Blood Pressure Mean 98 91 Blood Pressure Source Blood Pressure Position Blood Pressure Location Pulse Ox 94 98 92 Oxygen Delivery Method Room Air Room Air Room Air Oxygen Flow Rate (L/min) 06/22/24 21:00 06/22/24 21:31 06/22/24 22:00 Temperature 99.6 F H Temperature Source Oral Pulse Rate 101 H 106 H 116 H Respiratory Rate 35 H 30 H 25 H Respiratory Effort Respiratory Depth Respiratory Pattern Blood Pressure 134/73 H 137/72 H 128/84 H Blood Pressure Mean 89 93 96 Blood Pressure Source Blood Pressure Position Blood Pressure Location Pulse Ox 94 94 90 Oxygen Delivery Method Room Air Room Air Oxygen Flow Rate (L/min) 06/22/24 22:30 06/22/24 23:15 06/23/24 00:55 Temperature 99.8 F H Temperature Source Oral Pulse Rate 115 H 94 101 H Respiratory Rate 33 H 20 H 18 Respiratory Effort Respiratory Depth Respiratory Pattern Blood Pressure 129/78 H 122/67 H Blood Pressure Mean 95 85 Blood Pressure Source Monitor Blood Pressure Position Semi-Fowlers Blood Pressure Location Right Arm Pulse Ox 92 94 91 Oxygen Delivery Method Room Air Room Air Oxygen Flow Rate (L/min) 06/23/24 02:17 06/23/24 02:37 06/23/24 06:00 Temperature 96.9 F L 97.6 F L Temperature Source Temporal Oral Pulse Rate 90 80 Respiratory Rate 17 16 Respiratory Effort Normal Non-Labored Respiratory Depth Normal Respiratory Pattern Normal Blood Pressure 114/74 127/83 H Blood Pressure Mean 87 97 Blood Pressure Source Monitor Blood Pressure Position Right Lateral Blood Pressure Location Left Arm Pulse Ox 96 98 Oxygen Delivery Method CPAP CPAP Ambu-Bag Oxygen Flow Rate (L/min) 06/23/24 06:00 06/23/24 08:00 06/23/24 09:10 Temperature 97.6 F L Temperature Source Oral Pulse Rate 80 Respiratory Rate 16 Respiratory Effort Normal Non-Labored Respiratory Depth Respiratory Pattern Blood Pressure 127/83 H Blood Pressure Mean 97 Blood Pressure Source Monitor Blood Pressure Position Semi-Fowlers Blood Pressure Location Right Arm Pulse Ox 98 98 Oxygen Delivery Method CPAP Nasal Cannula Oxygen Flow Rate (L/min) 4 3 06/23/24 10:00 06/23/24 12:00 Temperature 97.4 F L 97.6 F L Temperature Source Temporal Temporal Pulse Rate 92 70 Respiratory Rate 17 17 Respiratory Effort Respiratory Depth Respiratory Pattern Blood Pressure 135/88 H 134/85 H Blood Pressure Mean 103 101 Blood Pressure Source Monitor Blood Pressure Position Semi-Fowlers Blood Pressure Location Right Arm Pulse Ox 95 94 Oxygen Delivery Method Room Air Room Air Oxygen Flow Rate (L/min) Weight Weight: 94.347 kg Body Mass Index (BMI) 30.7 EEG Results Procedure Details EEG Procedure Details: HOMER VINICIUS is a 74 year old M with a past medical history of , who presents for evaluation of Electroencephalogram on DATE at TIME NIHSS NIHSS Nursing Documentation NIHSS Nursing Documentation: NIHSS: Ischemic Stroke/TIA Start: 06/22/24 23:09 Text: For PCU Patients: NIH and Neuro Check every 4 Status: Active hours, PRN and with change in RN caregiver. Freq: [id number] Protocol: Activity Type Activity Date Activity User E-sign Co-sign Detail Recorded Client Recorded Date Recorded By Document 06/23/24 14:00 ML [id number] 06/23/24 14:56 ML 06/23/24 14:00 NIH Stroke Scale [NIHSS] A score of 0 is normal or asymptomatic . Total possible score is 42. Inpatient: RN or Physician to activate a stroke alert for onset of new stroke symptoms or with NIHSS increase >/= 3 points. Following change in neurological status, NIHSS will be performed per physician order or more frequently PRN. -1a. Level of Consciousness Alert; keenly responsive -1b. LOC Questions Answers BOTH questions correctly. -1c. LOC Commands Performs both tasks correctly . -2. Best Gaze Normal -3. Visual No visual loss -4. Facial Palsy Normal symmetrical movements -5a. Left Arm No drift; arm holds 90 (or 45 ) degrees for full 10 seconds -5b. Right Arm No drift; arm holds 90 (or 45 ) degrees for full 10 seconds -6a. Left Leg No drift; leg holds 30-degree position for full 5 seconds -6b. Right Leg No drift; leg holds 30-degree position for full 5 seconds -7. Limb Ataxia Absent -8. Sensory Normal; no sensory loss -9. Best Language No aphasia; normal -10. Dysarthria Normal -11. Extinction and Inattention No abnormality -Total 0 Query Text:A score of 0 is normal or asymptomatic. Total possible score is 42 . ED: Notify Physician for NIHSS increase by > / = 3 points. Inpatient: RN or Physician to activate a stroke alert for NIHSS increase of > / = 3 points. Coma Scale [Assess] -Eye Opening Spontaneous -Motor Obeys Commands -Verbal Oriented [Total] -Coma Scale Total 15 Physical Exam Neuro Neuro Narrative: awake alert oriented x3 following commands FRANSISCO, EMOI Face symmetric move all ext antigravity no drift Lab / Micro Data 06/23/24 06:26 06/23/24 06:26 Labs: Laboratory Results - last 24 hr 06/22/24 19:38: POC Glucose 110 H 06/22/24 19:44: WBC Cancelled, Corrected WBC Cancelled, RBC Cancelled, Hgb Cancelled, Hct Cancelled, MCV Cancelled, MCH Cancelled, MCHC Cancelled, RDW Std Deviation Cancelled, RDW Coeff of Mike Cancelled, Plt Count Cancelled, MPV Cancelled, Immature Gran % (Auto) Cancelled, Neut % (Auto) Cancelled, Lymph % (Auto) Cancelled, [place] % (Auto) Cancelled, Eos % (Auto) Cancelled, Baso % (Auto) Cancelled, Absolute Neuts (auto) Cancelled, Absolute Lymphs (auto) Cancelled, Total Counted Cancelled, Neutrophils % (Manual) Cancelled, Band Neutrophils % Cancelled, Lymphocytes % (Manual) Cancelled, Monocytes % (Manual) Cancelled, Eosinophils % (Manual) Cancelled, Basophils % (Manual) Cancelled, Metamyelocytes % Cancelled, Myelocytes % Cancelled, Promyelocytes % Cancelled, Blast Cells % Cancelled, Plasma Cell % (Manual) Cancelled, Other Cells % Cancelled, Nucleated RBC % Cancelled, Nucleated RBCs/100 WBC Cancelled, Differential Comment Cancelled, Diff Path Review Cancelled, Hypersegmented Neuts Cancelled, Atypical Lymphocytes Cancelled, Reactive Lymphocytes Cancelled, Smudge Cells Cancelled, Toxic Granulation Cancelled, Toxic Vacuolation Cancelled, Dohle Bodies Cancelled, Cindy Rods Cancelled, Platelet Estimate Cancelled, Plt Morphology Comment Cancelled, RBC Morphology Cancelled 06/22/24 19:44: RBC Morphology Cancelled, Polychromasia Cancelled, Hypochromasia Cancelled, Basophilic Stippling Cancelled, Anisocytosis Cancelled, Microcytosis Cancelled, Macrocytosis Cancelled, Spherocytes Cancelled, Sickle Cells Cancelled, Target Cells Cancelled, Tear Drop Cells Cancelled, Ovalocytes Cancelled, Stomatocytes Cancelled, [place] Bodies Cancelled, Toan Cells Cancelled, Bite Cells Cancelled, Crenated Cell Cancelled, Acanthocytes (Spur) Cancelled, Rouleaux Cancelled, Schistocytes Cancelled, Sodium 132 L, Potassium 4.4, Chloride 101, Carbon Dioxide 23.0, Anion Gap 9, BUN 22 H, Creatinine 1.48 H , Estim Creat Clear Calc 50.94, Est GFR (MDRD) Af Amer 60, Est GFR (MDRD) Non-Af 50 L, BUN/Creatinine Ratio 14.9, Glucose 108 H, Calcium 8.4 L, Magnesium 1.8, Troponin I High Sens 13 06/22/24 20:00: PT 21.7 H, INR 1.8, APTT 26.7 06/22/24 20:04: WBC 6.1, RBC 4.23 L, Hgb 12.7 L, Hct 38.0 L, MCV 89.8, MCH 30.0, MCHC 33.4, RDW Std Deviation 41.1, RDW Coeff of Mike 12.5, Plt Count 118 L, MPV 12.1 H, Immature Gran % (Auto) 0.300, Neut % (Auto) 81.9 H, Lymph % (Auto) 6.4 L , [place] % (Auto) 10.9 H, Eos % (Auto) 0.2, Baso % (Auto) 0.3, Absolute Neuts (auto) 5.0, Absolute Lymphs (auto) 0.39 L, Nucleated RBC % 0 06/22/24 20:45: Urine Color Yellow, Urine Clarity Clear, Urine pH 6.5, Ur Specific [place] 1.010, Urine Protein 30 H, Urine Glucose (UA) Normal, Urine Ketones Negative, Urine Occult Blood 25 H, Urine Nitrite Negative, Urine Bilirubin Negative, Urine Urobilinogen Normal, Ur Leukocyte Esterase Negative, Urine RBC 0-5 SEEN, Urine WBC 0 SEEN, Ur Squamous Epith Cells 0 SEEN, Urine Bacteria 0 SEEN, Urine Mucus 0 SEEN 06/22/24 22:36: Procalcitonin 0.12 H 06/23/24 06:26: WBC 5.0, RBC 4.58 L, Hgb 13.7, Hct 41.6, MCV 90.8, MCH 29.9, MCHC 32.9, RDW Std Deviation 41.6, RDW Coeff of Mike 12.6, Plt Count 85 L, MPV 14.1 H, Immature Gran % (Auto) 0.400, Neut % (Auto) 86.7 H, Lymph % (Auto) 9.3 L , [place] % (Auto) 3.4, Eos % (Auto) 0.0, Baso % (Auto) 0.2, Absolute Neuts (auto) 4.4, Absolute Lymphs (auto) 0.47 L, Nucleated RBC % 0, Differential Comment SCANNED, Platelet Estimate MOD DEC, Sodium 137, Potassium 4.1, Chloride 106, Carbon Dioxide 22.0, Anion Gap 9, BUN 20 H, Creatinine 1.24, Estim Creat Clear Calc 61.05, Est GFR (MDRD) Af Amer 74, Est GFR (MDRD) Non-Af 61, BUN/Creatinine Ratio 16.1, Glucose 153 H, Calcium 8.4 L, Total Bilirubin 0.70, AST 32, ALT 46, Alkaline Phosphatase 61, B-Natriuretic Peptide 299.6 H, Total Protein 6.7, A lbumin 3.0 L, Globulin 3.7, Albumin/Globulin Ratio 0.8 L, Triglycerides 48, Cholesterol 158, LDL Cholesterol 97, VLDL Cholesterol 10, HDL Cholesterol 51, TSH 1.440 Micro: Microbiology 06/22/24 20:00 Mucosa - Nose SARS-CoV-2, Influenza & RSV (PCR) - Final Influenzae A ABG Data ABG results: ABG 06/23/24 00:51 Specimen Type LINSEY Sample Site R Radial O2 % 21.0 VBG pH 7.40 VBG pO2 30 VBG HCO3 25 VBG Total CO2 26 VBG O2 Sat (Calc) 57 VBG Base Excess 0 POC Mix VBG pCO2 Pt Tmp 40.5 L O2 Delivery Device Room Air Imaging Radiology Impression Brain CT 06/22/24 19:43 IMPRESSION: Left parietal hypodensity favoring infarction of undetermined age. MRI is recommended to exclude an acute infarction. Critical results were communicated to Dr. Bryce Jaime at 7:56 p.m. One or more dose reduction techniques were used (e.g., Automated exposure control, adjustment of the mA and/or kV according to patient size, use of iterative reconstruction technique). Reading Location: [facility] Head/Neck CTA 06/22/24 19:44 IMPRESSION: Occluded right internal carotid artery. Thready opacification of a diminutive right cervical vertebral artery. Critical results communicated to Dr. Agrawal 8:15 p.m. One or more dose reduction techniques were used (e.g., Automated exposure control, adjustment of the mA and/or kV according to patient size, use of iterative reconstruction technique). Reading Location: [facility] Chest X-Ray 06/22/24 21:05 IMPRESSION: Pulmonary vascular congestion. Cardiomegaly. Reading Location: [facility] Echocardiogram 06/22/24 23:09 Interpretation Summary Normal LV size. Left ventricular systolic function is normal. The left ventricular ejection fraction is 55 %. Pulmonary artery systolic pressure is 34 mmHg. The left atrium is mildly enlarged. Contrast injection was performed. Ordering Physician: Cecy Villafana Performed By: Bryce Gunderson RCS Brain MRI 06/23/24 07:00 IMPRESSION: 1. No evidence of acute ischemia. 2. 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 Reading Location: [facility] Active Medications Active Medications Active Medications: Current Medications Generic Name Dose Route Start Last Admin Trade Name Freq PRN Reason Stop Dose Admin Acetaminophen 650 mg 06/22/24 23:09 Acetaminophen 325 Mg Tablet PO Q4H PRN PRN Fever, pain 1-02/24 Al Hydroxide/Mg Hydroxide 30 ml 06/22/24 23:09 Mag Hydrox/Al Hydrox/Simeth 30 Ml Udc PO Q6H PRN PRN Gastric Burning Albuterol Sulfate 2.5 mg 06/22/24 23:09 Albuterol 2.5 Mg/3 Ml Vial.Neb. INHALATION Q2H PRN PRN Dyspnea, wheezing Aspirin 81 mg 06/23/24 08:00 06/23/24 10:15 Aspirin 81 Mg Tab.Chew PO 81 mg BREAKFAST SANDRA Administration Atorvastatin Calcium 80 mg 06/22/24 23:09 06/22/24 23:39 Atorvastatin Calcium 80 Mg Tablet PO 80 mg QHS SANDRA Administration Budesonide 0.5 mg 06/23/24 01:45 Budesonide Respules 0.5 Mg/2 Ml Ampul.Neb. INHALATION BID.RT SANDRA Guaifenesin 20 ml 06/22/24 23:09 Guaifenesin 10 Ml Udc (200mg/10ml) PO Q4H PRN PRN COUGH Hydralazine HCl 10 mg 06/22/24 23:09 Hydralazine 20 Mg/Ml Vial IV Q4H PRN PRN SBP > 160 Protocol Hydralazine HCl 5 mg 06/22/24 23:09 Hydralazine 20 Mg/Ml Vial IV 06/23/24 23:09 Q30M PRN maintain BP parameters with HR <60 Labetalol HCl 10 - 20 mg 06/22/24 23:09 Labetalol 20mg/4ml Syringe IV 06/23/24 23:09 Q10M PRN PRN maintain BP parameters with HR >/=60 Melatonin 3 mg 06/22/24 23:09 Melatonin 3 Mg Tablet PO QHS PRN PRN INSOMNIA Ondansetron HCl 4 mg 06/22/24 23:09 Ondansetron 4 Mg/2 Ml Vial IV Q8H PRN PRN NAUSEA/VOMITING Oseltamivir Phosphate 75 mg 06/23/24 22:00 Oseltamivir Phosphate 75 Mg Capsule PO 06/27/24 22:01 BID SANDRA Prednisone 40 mg 06/24/24 08:00 Prednisone 20 Mg Tablet PO BREAKFAST SANDRA Prochlorperazine Edisylate 5 mg 06/22/24 23:09 Prochlorperazine 10 Mg/2 Ml Vial IV Q4H PRN PRN Breakthrough Nausea/Vomiting Rivaroxaban 20 mg 06/23/24 17:00 06/23/24 15:25 Rivaroxaban 20 Mg Tablet PO 20 mg DAILY@1700 [facility] Administration Senna/Docusate Sodium 2 tablet 06/22/24 23:09 Senna/Docusate Sodium 1 Tablet PO BID PRN PRN Constipation Sodium Chloride 10 - 40 ml 06/22/24 23:10 06/23/24 06:16 0.9% Saline Lock 10 Ml Syringe IV 10 ml UD PRN Administration SALINE FLUSH Throat Lozenges 1 lozenge 06/22/24 23:09 Benzocaine/Menthol 1 Lozenge MUCOUS MEM Q2H PRN PRN SORE THROAT
== END 2024-06-23 19:22 | disposition home or self-care (01) | DRG 193 ==
LOC: ED 22:11 → PCU 22:21
PROVIDERS: Admitting Provider Family Medicine; Emergency Provider Surgery; PCP Family Medicine; Visit Provider Hospitalist
DX: J10.1 Influenza due to other identified influenza virus with other respiratory manifestations (principal); J81.0 Acute pulmonary edema; R47.01 Aphasia; D63.1 Anemia in chronic kidney disease; Z66 Do not resuscitate; E66.811 Obesity, class 1; I48.0 Paroxysmal atrial fibrillation; N18.30 Chronic kidney disease, stage 3 unspecified; I12.9 Hypertensive chronic kidney disease with stage 1 through stage 4 chronic kidney disease, or unspecified chronic kidney disease; I65.21 Occlusion and stenosis of right carotid artery; G47.33 Obstructive sleep apnea (adult) (pediatric); E78.5 Hyperlipidemia, unspecified; R09.02 Hypoxemia; Z68.30 Body mass index [BMI] 30.0-30.9, adult; Z79.01 Long term (current) use of anticoagulants; Z79.899 Other long term (current) drug therapy
CPT/HCPCS: 36415; 36600; 70450; 70496; 70498; 70551; 71046; 80048; 80053; 80061; 81001; 82803; 82962; 83036; 83735; 83880; 84145; 84443; 84484; 85025; 85610; 85730; 87631; 93005; 93306; 94660; 94668; 97161; 99285; Q9957; Q9967; A4216; C8929; J1940

== ENCOUNTER → 2024-07-29 | Outpatient (CLI) | payer MEDICARE, SELFPAY ==
--- NOTE | 2024-07-29 12:47 | CDU_ITS ---
Reason For Study Reason For Study: HX Rt ICA Occlusion Rt. Velocities/BP Lt. Velocities/BP Prox CCA 35.7/7.8 cm/sec. Prox CCA 103.4/28.5 cm/sec. Mid CCA 40.9/12.1 cm/sec. Mid CCA 73.2/31.4 cm/sec. Dist CCA 25.1/8.5 cm/sec. Dist CCA 69.9/27.0 cm/sec. Rt ICA appears Occluded. Prox ICA 77.6/35.8 cm/sec. Prox ECA 55.2/18.6 cm/sec. Mid ICA 78.1/36.3 cm/sec. Rt. Vert. 13.2/3.4 cm/sec. Dist ICA 75.6/40.1 cm/sec. Prox ECA 58.6/12.9 cm/sec. Lt. Vert. 65.6/27.2 cm/sec. Right Extracranial There is heterogeneous, irregular atherosclerotic plaque noted in the right common carotid artery. There is heterogeneous, irregular atherosclerotic plaque noted in the right internal carotid artery. The right internal carotid artery is occluded. There is heterogeneous, irregular atherosclerotic plaque noted in the right external carotid artery. Antegrade flow is noted in the right vertebral artery. Left Extracranial There is intimal thickening but no significant atherosclerotic plaque noted in the left common carotid artery. There is heterogeneous, irregular atherosclerotic plaque noted in the left internal carotid artery. There is intimal thickening but no significant atherosclerotic plaque noted in the left external carotid artery. Antegrade flow is noted in the left vertebral artery. Procedure Carotid Duplex 29932. This is a Carotid Duplex examination using B-mode, color flow and specral Doppler. The exam was diagnostic. Exam performed in department. VL/Carotid Duplex Ultrasound Interpretation Summary Occlusion of the right extracranial internal carotid. Mild (<50%) stenosis left extracranial internal carotid. Patent and antegrade vertebrals bilaterally. Ordering Physician: Alicia Chaparro Referring Physician: Panda Eaton Performed By: Julio Burrows RVT
== END | disposition home or self-care (01) ==
LOC: CVS 12:46
PROVIDERS: PCP Family Medicine; Referring Provider Physician Assistant; Visit Provider Physician Assistant
DX: I65.23 Occlusion and stenosis of bilateral carotid arteries (principal)
CPT/HCPCS: 93880